=== PATIENT | male | born 1940 | race Caucasian/White ===

== ENCOUNTER → 2016-07-04 | Outpatient (CLI) | payer MEDICARE, BC ==
--- NOTE | 2016-07-04 08:45 | CT ---
EXAMINATION TYPE: CT cervical spine wo con DATE OF EXAM: 07/04/2016 8:21 AM COMPARISON: NONE HISTORY: Pain, history of previous surgery Automated exposure control for dose reduction was used. TECHNIQUE: CT scan of the cervical spine is obtained without contrast, axial images are obtained, sa gittal and coronal reformatted images are also reviewed. FINDINGS: Previous changes of ACDF from C5 through C7 levels and posterior fusion from C3 through C7 levels. Laminectomies from C3 through C7. There is stable alignment of the orthopedic hardware withou t any hardware complication seen. Grade 1 anterolisthesis the level of fusion at C7-T1 is unchanged with anterior bridging endplate sp ondylosis and facet arthropathy. Disc/endplate degenerative change at C3-C5 levels and also C7-T1 overall unchanged. C2-C3: there is left-sided facet and uncovertebral joint arthropathy causing mild left-sided neurofo raminal stenosis. C3-C4: bilateral facet and uncovertebral joint arthropathy causing moderate to severe left and mild right neuroforaminal stenosis. Dorsal decompression of the spinal canal. C4-C5: bilateral facet and uncovertebral joint arthropathy with moderate to severe right and moderate left neuroforaminal stenoses dorsal decompression of the spinal canal. C5-C6: posterior disc osteophyte complex with uncovertebral joint and facet arthropathy resulting in moderate left greater than right neuroforaminal stenoses. C6-C7: left paracentral disc osteophyte complex with uncovertebral joint and facet arthropathy. Alvarez ges result in mild to moderate left and mild right neuroforaminal stenoses. C7-T1: grade 1 anterolisthesis. The right C7 screw extends partially into the superior right neurofor amen. Facet arthropathy. No significant spinal canal stenosis. IMPRESSION: 1. Stable postsurgical changes. Stable alignment and hardware. 2. Moderate multilevel disc endplate complex degenerative change as well as hypertrophic changes of t he cervical apophyseal joints. 3. Varying degrees of foraminal stenosis.
--- NOTE | 2016-07-04 08:52 | CT ---
EXAMINATION TYPE: CT thoracic spine wo con DATE OF EXAM: 07/04/2016 8:21 AM COMPARISON: NONE HISTORY: Pain Unenhanced CT of the thoracic spine was performed from C7-T1 through T12-L1. Axial coronal and sagitt al images are reviewed in the bone and soft tissue window settings. Automated exposure control for dose reduction was used. FINDINGS: There is moderate multilevel degenerative disc space narrowing. Posterior disc bulging with encapsula ting spur at T10-11 paracentrally and to the left resulting in effacement of the thecal sac and borde rline to mild stenosis. Disc bulging with mild encapsulating spur at T11-12 with only mild effacement of the ventral thecal sac. Moderately large disc endplate complex at L1-2 resulting in left lateral recess stenosis, left foraminal encroachment and central stenosis. Remaining thoracic levels are felt to be within normal limits. Moderate anterior hypertrophic spur formation noted. No evidence for com pression fracture or malalignment. No bony destructive process. No paraspinal mass detected. Atheroma tous and ectatic change of the thoracic aorta. IMPRESSION: 1. MULTILEVEL DEGENERATIVE DISC DISEASE. 2. DISC ENDPLATE COMPLEX AT T10-11 AND T11-12 DISCUSSED ABOVE.
== END | disposition home or self-care (01) ==
LOC: RADCTMAIN 07:57
PROVIDERS: ATTEND Neurological Surgery
DX: M99.71 Connective tissue and disc stenosis of intervertebral foramina of cervical region (principal); M47.812 Spondylosis without myelopathy or radiculopathy, cervical region; M51.34 Other intervertebral disc degeneration, thoracic region; Z98.890 Other specified postprocedural states
CPT/HCPCS: 72125; 72128

== ENCOUNTER → 2016-09-21 | Outpatient (CLI) | payer MEDICARE, BC ==
--- NOTE | 2016-09-21 12:24 | CT ---
EXAMINATION TYPE: CT cervical spine wo con DATE OF EXAM: 09/21/2016 COMPARISON: NONE HISTORY: Cervical disc degeneration CT DLP: 438.5 mGycm Automated exposure control for dose reduction was used. TECHNIQUE: CT scan of the cervical spine is obtained without contrast, axial images are obtained, sa gittal and coronal reformatted images are also reviewed. FINDINGS: C3-4: There is severe left foraminal stenosis. Uncovertebral joint hypertrophy is present. There is s evere facet hypertrophy. Laminectomy has been performed. Left paracentral endplate spurring is presen t from C3. No spinal canal stenosis is present. C4-5: Facet hypertrophy and uncovertebral joint hypertrophy is contributing to severe bilateral toni inal stenosis. Laminectomy has been performed. No spinal canal stenosis present. C5-6: There is anterior cervical fusion. Mild bilateral foraminal narrowing is present C6-7: Endplate changes are present. Moderate left foraminal narrowing is present from uncovertebral j oint hypertrophy. Laminectomy has been performed. C7-T1: No spinal canal stenosis is evident. Neural foramen may have mild narrowing. Limited CT sections are obtained through the upper lung apices which are unremarkable. IMPRESSION: 1. Postsurgical changes with laminectomy anterior and posterior cervical fusions. 2. Multilevel degenerative disc changes within the nonfused disc levels. 3. Multiple levels of severe foraminal stenosis due to facet hypertrophy with some contribution from uncovertebral joint hypertrophy. 4. Exam appears stable from 07/04/2016.
== END | disposition home or self-care (01) ==
LOC: RADCTMAIN 06:51
PROVIDERS: ATTEND Neurological Surgery
DX: M99.71 Connective tissue and disc stenosis of intervertebral foramina of cervical region (principal); M47.812 Spondylosis without myelopathy or radiculopathy, cervical region; Z98.890 Other specified postprocedural states; Z98.1 Arthrodesis status
CPT/HCPCS: 72125

== ENCOUNTER → 2017-02-20 | Outpatient (CLI) | payer MEDICARE, BC ==
--- NOTE | 2017-02-20 16:10 | XR ---
EXAMINATION TYPE: XR thoracic spine 2V DATE OF EXAM: 02/20/2017 CLINICAL HISTORY: pain TECHNIQUE: Frontal, lateral, and swimmer's view of thoracic spine are obtained. Cervicothoracic imag ing. COMPARISON: None. FINDINGS: Interconnecting pedicular screws extend from C3 through T5. Alignment appears to be near-an atomic. Lower cervical fixation plate and anterior screws noted. ACDF changes C5-C7. Intervertebral b kai spacers appear to be stable. No evidence for acute compression fracture. IMPRESSION: Appropriate postoperative alignment.
== END | disposition home or self-care (01) ==
LOC: RADXRMAIN 13:57
PROVIDERS: ATTEND Neurological Surgery
DX: M48.061 Spinal stenosis, lumbar region without neurogenic claudication (principal); M50.30 Other cervical disc degeneration, unspecified cervical region; Z98.890 Other specified postprocedural states
CPT/HCPCS: 72070

== ENCOUNTER → 2017-04-27 | Day surgery (SDC) | payer MEDICARE, BC ==
[2017-04-19 12:23] VITALS: BMI 29.7
[~2017-04-27] MED LIST: CLINDAMYCIN 150 MG/ML 4 ML VIAL IVPB ONE; CLINDAMYCIN 900 MG in DEXTROSE 5% IN WATER 50 ML IVPB ONE; LIDOCAINE 2% INJ 20 MG/ML SQ ONE; MIDAZOLAM 2 MG/2 ML VIAL IV ONE; SODIUM CHLORIDE 0.9% 1,000 ML IV SCH
[2017-04-27 07:03] LABS: Glucose,Whole Blood 101 mg/dL (75-99)
[2017-04-27 07:09] LABS: Basophils # (A) 0.1 k/uL (0-0.2); Basophils % (A) 1 %; Eosinophils # (A) 0.1 k/uL (0-0.7); Eosinophils % (A) 2 %; HCT 48.1 % (39.0-53.0); HGB 15.7 gm/dL (13.0-17.5); Lymphocytes # (A) 1.7 k/uL (1.0-4.8); Lymphocytes % (A) 28 %; MCH 30.7 pg (25.0-35.0); MCHC 32.6 g/dL (31.0-37.0); MCV 94.2 fL (80.0-100.0); Mean Platelet Volume 7.2; Monocytes # (A) 0.4 k/uL (0-1.0); Monocytes % (A) 7 %; Neutrophils # (A) 3.6 k/uL (1.3-7.7); Neutrophils % (A) 60 %; Platelet Count 273 k/uL (150-450); RBC 5.11 m/uL (4.30-5.90); RDW 14.5 % (11.5-15.5); WBC 6.1 k/uL (3.8-10.6)
[2017-04-27 07:15] VITALS: TEMP 98.7
[2017-04-27 07:21] LABS: Anion Gap 10 mmol/L; Blood Urea Nitrogen 13 mg/dL (9-20); Calcium 9.2 mg/dL (8.4-10.2); Carbon Dioxide 27 mmol/L (22-30); Chloride 106 mmol/L (98-107); Glucose 114 mg/dL (74-99); Potassium 3.5 mmol/L (3.5-5.1); Sodium 143 mmol/L (137-145)
[2017-04-27 08:30] VITALS: BP 123/77; PULSE 62; RESP 16
--- NOTE | 2017-04-27 08:38 | P.PCN ---
Preoperative Diagnosis: Loop monitor implant Primary physicians: Dr. Hearn Diagrammer: Dr. Marin Indication: Recurrent dizziness and presyncope, palpitations Patient was brought to the EP lab in a fasting state. Written informed consent was obtained prior to the procedure. The left pectoral area was prepped and draped per protocol. Intravenous antibiotic was administered preoperatively. A subcutaneous Loop monitor was implanted successfully and the wound was closed per protocol. The device was programmed to detect significant yakov- arrhythmic and tachy-arrhythmic events, per protocol. Device and programming details: Bradycardia and A. fib detection protocol Patient underwent EP procedure under conscious sedation/moderate sedation, monitoring of the level of consciousness and physiologic parameters including but not limited to vital signs and oxygenation. Patient tolerated the procedure well without any acute complications. Start time: 7:55 AM Stop time: 8:06 AM Condition: stable Disposition: same day
--- NOTE | 2017-05-12 17:24 | P.PCN ---
Preoperative Diagnosis: Procedure: Tilt table test Indication for procedure: Syncope 2 ECG shows sinus rhythm normal cardiac intervals Tilt table test per protocol Baseline blood pressure 119/70 mmHg Baseline heart rate 62 beats a minute patient was tilted upright at an angle of 70 per protocol was no changes heart regular blood pressure and he is supine at the end of the procedure Impression Normal heart rate and blood pressure response to upright tilting Plan Proceed with implantation of a loop monitor for evaluation of syncope Condition: stable Disposition: same day
== END | disposition home or self-care (01) ==
LOC: CATHEP 06:17
PROVIDERS: ATTEND Internal Medicine Clinical Cardiac Electrophysiology
DX: R55 Syncope and collapse (principal); R00.2 Palpitations; I10 Essential (primary) hypertension; I45.89 Other specified conduction disorders; I45.10 Unspecified right bundle-branch block; E78.5 Hyperlipidemia, unspecified; E11.9 Type 2 diabetes mellitus without complications; Z79.84 Long term (current) use of oral hypoglycemic drugs; Z79.82 Long term (current) use of aspirin; Z79.899 Other long term (current) drug therapy; Z88.0 Allergy status to penicillin; Z88.8 Allergy status to other drugs, medicaments and biological substances; Z91.041 Radiographic dye allergy status
CPT/HCPCS: 33282; 93660; 80048; 85025; C1764; J2001; J2250; 93005

== ENCOUNTER → 2017-05-09 | Outpatient (CLI) | payer MEDICARE, BC ==
--- NOTE | 2017-05-09 12:18 | CT ---
EXAMINATION TYPE: CT CervThoracic spine wo con DATE OF EXAM: 05/09/2017 COMPARISON: Cervical spine CT dated 09/21/[address] dated 07/04/2016 HISTORY: Upper back pain and Left arm numbness post fusion repair in November 2016 CT DLP: 1441.4 mGycm Automated exposure control for dose reduction was used. FINDINGS: The cervical and thoracic vertebral bodies maintain normal vertebral body height and alignment. There is a slight exaggerated upper thoracic kyphosis. Surgical fixation of the cervical to upper thoracic posterior spine is seen from C3 to T4 and anteriorly from C5 through C7. No acute cervical spine or thoracic spine fracture is identified. Uncovertebral hypertrophy and facet arthropathy result in variable degrees of neural foraminal stenos is as described below. Spinal canal is patent secondary to resection of the posterior elements within the upper thoracic and entirety of the cervical spine. C2-C3: Mild to moderate on the left. No neural foraminal narrowing on the right. C3-C4: Severe on the left and mild on the right neural foraminal narrowing. C4-C5: Severe bilateral neural foraminal narrowing. C5-C6: Severe bilateral neural foraminal narrowing. C6-C7: Mild bilateral neural foraminal narrowing. C7-T1: No significant neural foraminal narrowing. No significant neural foraminal narrowing is seen within the thoracic spine at any level. Posterior disc osteophyte complex is seen at T10-T11 creating mild spinal canal stenosis. Disc desiccation is seen at T11-T12 with vacuum disc disease as well as that T12-L1. Visualized lungs are clear other than biapical pleural-parenchymal scarring. Extensive three-vessel c oronary artery calcifications are incidentally noted. Paraspinal muscles appear unremarkable. Thyroid gland is also unremarkable. IMPRESSION: 1. POSTSURGICAL CHANGES OF THE CERVICAL THORACIC SPINE WITHOUT EVIDENCE OF SPINAL CANAL STENOSIS AND LEFT CERVICAL SPINE OR UPPER THORACIC SPINE. 2. MILD SPINAL CANAL STENOSIS AT T10-11 SECONDARY TO A DISC OSTEOPHYTE COMPLEX. 3. EXTENSIVE FACET ARTHROPATHY AND UNCOVERTEBRAL HYPERTROPHY AT THE CERVICAL SPINE CREATING VARIABLE DEGREES OF NEURAL FORAMINAL STENOSIS DESCRIBED ABOVE MOST SEVERE AT C3-C6.
== END | disposition home or self-care (01) ==
LOC: RADCTMAIN 11:01
PROVIDERS: ATTEND Neurological Surgery
DX: M48.04 Spinal stenosis, thoracic region (principal); M99.71 Connective tissue and disc stenosis of intervertebral foramina of cervical region; M46.92 Unspecified inflammatory spondylopathy, cervical region; M53.82 Other specified dorsopathies, cervical region; Z98.890 Other specified postprocedural states
CPT/HCPCS: 72125; 72128

== ENCOUNTER → 2017-05-26 | Outpatient (CLI) | payer MEDICARE, BC ==
--- NOTE | 2017-05-26 14:45 | CT ---
EXAMINATION TYPE: CT cervical spine wo con DATE OF EXAM: 05/26/2017 COMPARISON: NONE HISTORY: Arthrodesis status, syncopal episodes CT DLP: 421.7 mGycm Automated exposure control for dose reduction was used. TECHNIQUE: CT scan of the cervical spine is obtained without contrast, axial images are obtained, sa gittal and coronal reformatted images are also reviewed. FINDINGS: There is diffuse loss of disc height throughout the cervical spine. Anterior cervical fusio n is present C5-6. Posterior endplate spurring is present C6-7 with mild anterior thecal sac compress ion. Foraminal stenosis is present bilaterally. Uncovertebral joint hypertrophy is severe bilateral f oraminal stenosis C5-6 severe left and moderate right foraminal stenosis C3-4 is present. Severe righ t and moderate to severe left foraminal stenosis is present C4-5. Laminectomies have been performed C3-C7. IMPRESSION: 1. Degenerative disc changes throughout the cervical spine. 2. Uncovertebral joint hypertrophy within the upper to mid cervical spine contributing to moderate to severe foraminal stenosis discussed above. 3. Postsurgical changes with anterior fusion and posterior pedicle screws and fixation rods.
== END | disposition home or self-care (01) ==
LOC: RADXRMAIN 11:07 → RADCTMAIN 11:17
PROVIDERS: ATTEND Neurological Surgery
DX: M99.71 Connective tissue and disc stenosis of intervertebral foramina of cervical region (principal); M47.812 Spondylosis without myelopathy or radiculopathy, cervical region; Z47.89 Encounter for other orthopedic aftercare; Z98.1 Arthrodesis status
CPT/HCPCS: 72125

== ENCOUNTER → 2017-06-01 | Outpatient (CLI) | payer MEDICARE, BC ==
--- NOTE | 2017-06-01 11:58 | XR ---
EXAMINATION TYPE: XR forearm LT DATE OF EXAM: 06/01/2017 COMPARISON: NONE HISTORY: Left elbow joint pain TECHNIQUE: 2 view left forearm FINDINGS: Postsurgical changes with resection of the radial head is evident. There are some small old osseous fragments adjacent to the proximal radius. No acute fractures are identified. The anterior fat pad is normal. No elevation of posterior fat pad is evident. IMPRESSION: 1. Old postsurgical changes with resection of the radial head. 2. No acute osseous abnormality.
--- NOTE | 2017-06-01 11:59 | XR ---
EXAMINATION TYPE: XR elbow complete LT DATE OF EXAM: 06/01/2017 COMPARISON: NONE HISTORY: History of radial head resection, pain TECHNIQUE: Three-view left elbow FINDINGS: The radial head is been resected. There are some ossifications adjacent to the proximal rad ius. The anterior fat pad is normal. No elevation of posterior fat pad is evident. Tiny olecranon spur is present. IMPRESSION: 1. Postsurgical changes with the prior resection of the radial head. 2. Acute osseous abnormality is not evident.
== END | disposition home or self-care (01) ==
LOC: RADXRMAIN 11:26
PROVIDERS: ATTEND Neurological Surgery
DX: M25.522 Pain in left elbow (principal); Z98.890 Other specified postprocedural states

== ENCOUNTER → 2017-06-02 | Outpatient (CLI) | payer MEDICARE, BC ==
[2017-06-02 15:26] LABS: Blood Urea Nitrogen 14 mg/dL (9-20)
== END | disposition home or self-care (01) ==
LOC: LABWHC1 14:49
PROVIDERS: ATTEND Neurological Surgery
DX: M48.02 Spinal stenosis, cervical region (principal)
CPT/HCPCS: 36415; 82565; 84520

== ENCOUNTER → 2017-08-28 | Outpatient (CLI) | payer MEDICARE, BC ==
[2017-08-28 11:36] LABS: HCT 51.4 % (39.0-53.0); HGB 16.7 gm/dL (13.0-17.5); MCH 31.3 pg (25.0-35.0); MCHC 32.5 g/dL (31.0-37.0); MCV 96.3 fL (80.0-100.0); Mean Platelet Volume 6.8; Platelet Count 257 k/uL (150-450); RBC 5.34 m/uL (4.30-5.90); RDW 13.3 % (11.5-15.5)
[2017-08-28 11:42] LABS: Anion Gap 14 mmol/L; Blood Urea Nitrogen 11 mg/dL (9-20); Calcium 9.5 mg/dL (8.4-10.2); Carbon Dioxide 30 mmol/L (22-30); Chloride 101 mmol/L (98-107); Glucose 142 mg/dL (74-99); Potassium 3.6 mmol/L (3.5-5.1); Sodium 145 mmol/L (137-145)
== END | disposition home or self-care (01) ==
LOC: LABWHC1 10:52
PROVIDERS: ATTEND Internal Medicine Clinical Cardiac Electrophysiology
DX: I47.1 Supraventricular tachycardia (principal); R55 Syncope and collapse
CPT/HCPCS: 36415; 80048; 85027

== ENCOUNTER 2017-09-12 06:42 | Day surgery (SDC) | payer MEDICARE, BC ==
[2017-09-01 13:46] VITALS: BMI 28.8
[~2017-09-12 06:42] MED LIST changes: -CLINDAMYCIN 150 MG/ML 4 ML VIAL IVPB ONE; -CLINDAMYCIN 900 MG in DEXTROSE 5% IN WATER 50 ML IVPB ONE; +LACTATED RINGERS 1,000 ML IV SCH; -LIDOCAINE 2% INJ 20 MG/ML SQ ONE; -MIDAZOLAM 2 MG/2 ML VIAL IV ONE
[2017-09-12] MEDS ORDERED: SODIUM CHLORIDE 0.9% 1,000 ML IV ONE (07:19)
[2017-09-12] MEDS ORDERED: LIDOCAINE 2% INJ 20 MG/ML (20 ML MDV) ONE ×2 (07:22)
[2017-09-12 07:55] LABS: Glucose,Whole Blood 103 mg/dL (75-99)
[2017-09-12] MEDS ORDERED: ROCURONIUM BROMIDE 10 MG/ML 10 ML VIAL IV ONE (08:02)
[2017-09-12] MEDS ORDERED: ISOPROTERENOL 200 MCG/ML 5 ML AMP IV ONE (08:02)
[2017-09-12] MEDS ORDERED: GLYCOPYRROLATE 0.2 MG/ML 2 ML VIAL ONE (08:02)
[2017-09-12] MEDS ORDERED: HEPARIN SODIUM,PORCINE 5,000 UNIT/ML 1 ML VIAL ONE (08:02)
[2017-09-12] MEDS ORDERED: ONDANSETRON 4 MG/2 ML VIAL ONE (08:02)
[2017-09-12] MEDS ORDERED: LIDOCAINE 1% INJ 10MG/ML (20 ML MDV) ONE (08:02)
[2017-09-12] MEDS ORDERED: SUCCINYLCHOLINE CHLORIDE 100 MG/5 ML SYR IV ONE (08:02)
[2017-09-12] MEDS ORDERED: fentaNYL (PF) 50 MCG/ML 2 ML AMP ONE (08:02)
[2017-09-12] MEDS ORDERED: MIDAZOLAM 2 MG/2 ML VIAL ONE (08:02)
[2017-09-12] MEDS ORDERED: NEOSTIGMINE 1 MG/ML 10 ML VIAL ONE (08:02)
[2017-09-12] MEDS ORDERED: PROTAMINE SULFATE 10 MG/ML 5 ML VIAL IV ONE (08:02)
[2017-09-12] MEDS ORDERED: PROPOFOL 10 MG/ML 20 ML VIAL IV ONE (08:02)
[2017-09-12] MEDS ORDERED: LIDOCAINE 2% INJ 20 MG/ML SQ ONE (08:34)
[2017-09-12] MEDS ORDERED: HEPARIN SODIUM 1,000 UN/ML (10ML VL) ONE (09:41)
[2017-09-12] MEDS ORDERED: HEPARIN SODIUM,PORCINE/D5W PMX 25,000 UNIT in DEXTROSE/WATER 1 500ML.BAG IV ONE (09:55)
[2017-09-12] MEDS ORDERED: HEPARIN SODIUM (1,000 UNIT/ML) 1,000 UNIT in SODIUM CHLORIDE 0.9% 1,000 ML IRRIGATION ONE (10:24)
[2017-09-12] MEDS ORDERED: ACETAMINOPHEN IV (For NPO) 1,000 MG in EMPTY BAG 1 BAG IVPB ONE (11:07)
[2017-09-12] MEDS ORDERED: HYDROcodone/APAP 5-325MG 1 EACH TAB PO PRN (11:07)
[2017-09-12] MEDS ORDERED: ACETAMINOPHEN TAB 325 MG TAB PO PRN (11:07)
[2017-09-12 11:40] LABS: Glucose,Whole Blood 107 mg/dL (75-99)
[2017-09-12] MEDS: APIXABAN 5 MG TAB PO SCH ×2 (13:15→20:45)
[2017-09-12 16:32] LABS: Glucose,Whole Blood 81 mg/dL (75-99)
[2017-09-12] MEDS: metFORMIN 500 MG TAB PO SCH (16:55)
[2017-09-12] MEDS ORDERED: METOPROLOL SUCCINATE (ER) 25 MG TAB.ER.24H PO SCH (17:00)
--- NOTE | 2017-09-12 19:03 | CE ---
CARDIAC ELECTROPHYSIOLOGY REPORT Mr. Woods is an 77-year-old male patient who has a history of AV ari reentry. He has a loop monitor implanted because he has had episodes of syncope, but no arrhythmias have been documented during these spells. It is unclear as to why this man falls to the ground. 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 He is brought in for diagnostic EP study for an evaluation of the arrhythmia and possible radiofrequency ablation and to recommend further changes in management. Patient was brought to the EP lab in a fasting state. Written informed consent was obtained prior to the procedure. Both groins were prepped and draped as per protocol. Three venous sheaths were placed in the right femoral vein. Via these, diagnostic catheters were placed in the right heart initially in the high right atrium, His bundle and AV node and right ventricle. Later, the catheter was placed in the coronary sinus. Sinus cycle length 976 milliseconds, IA interval 230 milliseconds, QRS 157 milliseconds, QT 440 milliseconds, AH interval 103 milliseconds, normal HV interval. AV node Wenckebach block in the baseline state 500 milliseconds. No VA conduction noted in the baseline state. Sinus node recovery times at 600, 500 and 400 milliseconds were 1316, 1335 and 1134 milliseconds. Corresponding corrected sinus node recovery times were at the upper limits of normal. AV node ERP 600/350 milliseconds. Isuprel was started. AV node Wenckebach block improved to 250 milliseconds. VA Wenckebach block improved to 340 milliseconds. AV node ERP 500/less than 200 milliseconds. Ventricular ERP 500/less than 200 milliseconds. AV node Wenckebach block from the coronary sinus was 290 milliseconds. Burst stimulation from the coronary sinus was performed. No SVT was induced. High-dose Isuprel was continued. Tachycardia spontaneously induced. This was an organized atrial fibrillation that later organized to an atrial flutter. Entrainment mapping was performed from the coronary sinus os and from the isthmus and the post pacing interval was almost equal to the tachycardia cycle length. The morphology on the surface ECG also corresponded to a typical atrial flutter. Therefore, an intracardiac echo catheter was placed. A long sheath was placed. RF ablation land surveyor tip was placed. 3D mapping was performed. The patient had a subeustachian pouch, actually 2 subeustachian pouches, 2 adjacent pouches in the subeustachian area. Electrocardioversion was first performed and the rest of the procedure was performed under general anesthesia. RF ablation was applied in the cava tricuspid isthmus. A complete line of block was made. The line was anatomically complete. Thereafter with differential pacing, bidirectional block was proven. IV heparin was used during the procedure. This was reversed at the end of the procedure and the sheaths were removed. Please note that the patient had both disorganized atrial fibrillation, organized atrial fibrillation as well as atrial flutter. IMPRESSION: A 77-year-old male patient with a history of diabetes who has documented supraventricular tachycardia, symptomatic, and has inducible atrial flutter as well as inducible atrial fibrillation, both paroxysmal. He has typical atrial flutter and he underwent successful ablation for typical atrial flutter. PLAN: Start Eliquis 5 mg twice daily. Continue all other medications. It is possible that he may have had TIAs during these drop attacks and if so, then anticoagulation would take care of the problem. However, he also has severe neck disease and vertebral basilar insufficiency could be the cause of his loss of consciousness. However, we have not documented any bradyarrhythmias of AV block or even SVT as a cause of his loss of consciousness. He does have atrial flutter and atrial fibrillation, which is symptomatic, but is not associated with loss of consciousness. Since his AV node is abnormal in the baseline state, I would not treat him with any anti further antiarrhythmic drugs. He is already on low-dose beta blockers and he is breaking through with these episodes. I would recommend a cryoablation for symptomatic paroxysmal atrial fibrillation and I will schedule this for him. MMODL / IJN: [id number] /
--- NOTE | 2017-09-12 19:09 | LTR ---
Dear Leeroy: I had the pleasure seeing Mr. Herminio Woods on 09/12/2017 in electrophysiology followup. 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 He has had episodes of altered consciousness. Mr. Woods has undergone successful ablation for AV ari reentry. He also underwent a loop monitor implant as well as a tilt-table test for episodes of loss of consciousness. During episodes of loss of consciousness, he has neither any tachy nor bradyarrhythmias. However, we have documented episodes of tachyarrhythmia, supraventricular tachycardia, which is symptomatic, and he complains of being fatigued, as if he has run a mile. Therefore, I brought him in for a diagnostic EP study and I was able to induce: 1. Atrial fibrillation. 2. Typical atrial flutter. He does have a mildly abnormal AV node and he is already on beta blockers and therefore, I would not recommend any antiarrhythmic drug therapy for the atrial fibrillation. I did perform a successful atrial flutter ablation and I will schedule him for ablation for paroxysmal atrial fibrillation (pulmonary vein isolation). Most importantly, this gentleman needs anticoagulation and I have started him on Eliquis 5 mg twice daily. 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 His tilt-table test previously did not show evidence for neurocardiogenic syncope. I will keep you updated on his progress. Thank you for entrusting me with the care of your patient. Warm regards. Sincerely, CARLEY / MIGUEL ÁNGEL: [id number] /
[2017-09-12] MEDS ORDERED: ATORVASTATIN 20 MG TAB PO SCH (21:00)
[2017-09-12 21:01] LABS: Glucose,Whole Blood 130 mg/dL (75-99)
[2017-09-12 23:40] VITALS: RESP 16
[2017-09-13 06:19] LABS: Glucose,Whole Blood 101 mg/dL (75-99)
[2017-09-13] MEDS: metFORMIN 500 MG TAB PO SCH (06:19)
[2017-09-13 08:02] VITALS: BP 129/72; PULSE 75; TEMP 98
--- NOTE | 2017-09-13 08:10 | P.DS ---
Providers Attending physician: Randell Geiger Primary care physician: Leeroy Hearn [facility] Course: Impression Paroxysmal atrial flutter, typical, RVR, symptomatic. This reminded him of his clinical episodes of being tired and weak Paroxysmal atrial fibrillation with RVR, symptomatic Recurrent syncope without arrhythmias documented on loop monitor Recurrent supraventricular tachycardia with associated weakness but no loss of consciousness documented on loop monitor History of AV ari reentry status post successful ablation in the past Mildly abnormal AV node function at baseline with improved on Isuprel Status post successful atrial flutter ablation with bidirectional block with differential pacing We will schedule A. fib ablation, PVI Patient has a large left atrial appendage, normal size left atrium and a thick intra-atrial septum, aneurysmal Avoid antiarrhythmic drug therapy given the AV node/ fast pathway conduction abnormality Long-term anticoagulation indicated since patient is diabetic and is 77 years of age, KENNETH VASC score 3 Plan - Discharge Summary New Discharge Prescriptions: New Apixaban [Eliquis] 5 mg PO BID #180 tab Continue Atorvastatin [Lipitor] 20 mg PO HS metFORMIN HCL [Glucophage Xr] 500 mg PO HS Metoprolol Succinate [Toprol XL] 25 mg PO 1700 Discharge Medication List Atorvastatin [Lipitor] 20 mg PO HS 08/18/14 [History] metFORMIN HCL [Glucophage Xr] 500 mg PO HS 08/18/14 [History] Metoprolol Succinate [Toprol XL] 25 mg PO 1700 09/01/17 [History] Apixaban [Eliquis] 5 mg PO BID #180 tab 09/12/17 [Rx] Follow up Appointment(s)/Referral(s): Randell Geiger MD [STAFF PHYSICIAN] - As Needed (Follow-up appointment as scheduled with Dr. Marin in 4-6 weeks) Activity/Diet/Wound Care/Special Instructions: Post EP study - Ablation instructions 1. Keep access sites dry for 2 days. 2. No heavy lifting or straining for 2 days. 3. Avoid bending the hips repeatedly for 2 days. 4. You may go up and down stairs slowly Call if the following is noted 1. Bleeding, increasing swelling or pain at the access sites. 2. Increasing chest discomfort, especially upon taking a deep breath. 3. Increasing shortness of breath, at rest or with exertion. 4. Undue cough / phlegm 5. Difficulty or pain while swallowing. 6. Pain or change in color in the extremities. 7. Fever, chills, rigors. 8. Increasing headache or neurologic symptoms. 9. Dizziness, fainting, palpitations New medication ELIQUIS 5 mg twice daily for stroke prevention Continue all other medications Please call piano case maker to arrange for first month supply of ELIQUIS Discharge Disposition: HOME SELF-CARE
[2017-09-13] MEDS: APIXABAN 5 MG TAB PO SCH (08:12)
--- NOTE | 2017-09-13 08:19 | DS ---
DISCHARGE SUMMARY Mr. Woods is a 77-year-old male patient who was admitted for evaluation for SVT with RVR. Paroxysmal atrial fibrillation was induced, paroxysmal typical atrial flutter was induced. He underwent atrial flutter ablation. This morning, he is doing well. He has minimal soreness in the groin. There is no hematoma. Heart sounds are normal. Breath sounds are clear. Vitals are stable. Blood pressure is normal. Heart rates are normal. He is ambulating in the hallways. A 12- lead ECG shows a mildly prolonged MI interval, which is at similar to baseline. No arrhythmias. PLAN: Discharge home on oral anticoagulants, Eliquis 5 mg twice daily. Continue diabetes medications, low-dose beta blockers and atorvastatin and consider A. fib ablation. I have scheduled him for the procedure. I would avoid antiarrhythmic drug therapy on him because he has pacing induced AV block and a mildly prolonged MI interval at baseline. He will be discharged home today and we will see him in the office and he will follow with Dr. Hearn. CARLEY / MIGUEL ÁNGEL: [id number] /
--- NOTE | 2017-09-13 08:22 | P.CONS ---
History of Present Illness - Reason for Consult Consult date: 09/13/17 - Chief Complaint Arrhythmia - History of Present Illness The patient is seen for medical consultation related to arrhythmia of atrial flutter/atrial fibrillation. The patient is status post EPS study. He has an underlying history of well-controlled hypertension. Otherwise home with syncope. I had a long discussion with river pilot who feels that this could be most posterior circulatory. Otherwise no voiding difficulties. No overt chest pain or shortness of breath is noted. Review of Systems Constitutional: Denies chills, Denies fever Eyes: denies blurred vision, denies pain Ears, nose, mouth and throat: Denies headache, Denies sore throat Cardiovascular: Denies chest pain, Denies shortness of breath Respiratory: Denies cough Gastrointestinal: Denies abdominal pain, Denies diarrhea, Denies nausea, Denies vomiting Past Medical History Past Medical History: Diabetes Mellitus, GERD/Reflux, Hyperlipidemia, Hypertension, Osteoarthritis (OA), Sleep Apnea/CPAP/BIPAP Additional Past Medical History / Comment(s): occular migraines,uses cpap machine- had precancerous polyps removed from colon. See Dr Geiger's H&P for cardiac hx metal C3-T4 , vertigo History of Any Multi-Drug Resistant Organisms: None Reported Past Surgical History: Cardiac Ablation, Orthopedic Surgery Additional Past Surgical History / Comment(s): bilcervical , C3 to T4 on 2016has plate and chronic pain limited movement, sawyer carpal tunnel , sawyer cataracts-occular implnats, and lt eye retinal repair, rt rotaot cuff rt has screws in place, epidural injection in lumbar area x2 at [place] Past Anesthesia/Blood Transfusion Reactions: Previous Problems w/ Anesthesia, Motion Sickness Additional Past Anesthesia/Blood Transfusion Reaction / Comm: vertigo due to anethesia Smoking Status: Never smoker - Past Family History Father Additional Family Medical History / Comment(s): killed in mine accident. in his family colon cancer was prevalent Mother Family Medical History: Dementia, Diabetes Mellitus Additional Family Medical History / Comment(s): lived till age 93 Medications and Allergies Home Medications Medication Instructions Recorded Confirmed Type Atorvastatin [Lipitor] 20 mg PO HS 08/18/14 09/12/17 History metFORMIN HCL [Glucophage Xr] 500 mg PO HS 08/18/14 09/12/17 History Metoprolol Succinate [Toprol XL] 25 mg PO 1700 09/01/17 09/12/17 History Apixaban [Eliquis] 5 mg PO BID #180 tab 09/12/17 Rx Allergies Allergy/AdvReac Type Severity Reaction Status Date / Time Iodinated Contrast- Oral and Allergy Anaphylaxis Verified 09/01/17 13:36 IV Dye [Iodinated Contrast Media - IV Dye] Penicillins Allergy Rash/Hives Verified 09/01/17 13:36 Physical Exam Vitals: Vital Signs Temp Pulse Resp BP Pulse Ox 09/13/17 08:00 98 F 75 16 129/72 96 09/13/17 05:00 118/70 09/13/17 04:00 98.1 F 68 16 129/78 96 09/12/17 23:38 98.0 F 70 16 119/73 95 09/12/17 23:35 18 09/12/17 22:52 122/75 09/12/17 20:00 97.9 F 75 18 119/73 97 09/12/17 16:33 97.5 F L 78 16 125/81 96 09/12/17 16:30 76 16 09/12/17 14:52 68 16 126/64 95 09/12/17 13:52 97.0 F L 84 16 134/86 97 09/12/17 12:53 97.0 F L 86 16 136/81 96 09/12/17 12:52 84 16 136/84 98 09/12/17 12:43 83 14 09/12/17 12:28 85 16 131/88 97 09/12/17 12:13 96.8 F L 86 16 136/81 96 09/12/17 11:53 83 14 136/88 97 09/12/17 11:38 82 14 136/88 100 09/12/17 11:23 97.7 F 88 16 138/87 99 Intake and Output 09/12/17 09/13/17 09/13/17 22:59 06:59 14:59 Intake Total 240 125 240 Output Total 400 Balance -160 125 240 Intake: Oral 240 125 240 Output: Urine 400 Other: Voiding Method Toilet # Voids 2 2 1 # Bowel Movements 0 Weight 80.9 kg - Constitutional General appearance: no acute distress - EENT Eyes: EOMI - Neck Neck: no lymphadenopathy - Cardiovascular Rhythm: regular Abnormal Heart Sounds: no S3 Gallop - Gastrointestinal General gastrointestinal: soft, no tenderness - Integumentary Integumentary: no cellulitis - Neurologic Neurologic: CNII-XII intact Results Labs: Abnormal Lab Results - Last 24 Hours (Table) 09/12/17 09/12/17 09/13/17 Range/Units 11:38 20:58 06:17 POC Glucose (mg/dL) 107 H 130 H 101 H (75-99) mg/dL Assessment and Plan (1) DM w/o complication type II Current Visit: No Status: Acute Code(s): E11.9 - TYPE 2 DIABETES MELLITUS WITHOUT COMPLICATIONS SNOMED Code(s): 167146300 (2) SVT (supraventricular tachycardia) Current Visit: No Status: Acute Code(s): I47.1 - SUPRAVENTRICULAR TACHYCARDIA SNOMED Code(s): 2457472 (3) Syncope and collapse Current Visit: No Status: Acute Code(s): R55 - SYNCOPE AND COLLAPSE SNOMED Code(s): 880931838 Plan: Reconcile medications. We'll continue to follow her medical perspective. I had a long discussion with the patient educating probable prognosis. I discussed CODE STATUS with the patient is full code at this time. See orders otherwise. I appreciate consultation. Time with Patient: Less than 30
[2017-09-13] MEDS ORDERED: TRIAMCINOLONE 0.1% CREAM 80 GM TUBE TOPICAL SCH (09:00)
== END 2017-09-13 09:25 | disposition home or self-care (01) ==
LOC: CATHEP 06:42 → 6SEL 10:50 → CATHEP 09-13 09:25
PROVIDERS: ATTEND Internal Medicine Clinical Cardiac Electrophysiology
DX: I47.1 Supraventricular tachycardia (principal); I48.0 Paroxysmal atrial fibrillation; I48.3 Typical atrial flutter; R55 Syncope and collapse; E78.5 Hyperlipidemia, unspecified; E11.9 Type 2 diabetes mellitus without complications; I10 Essential (primary) hypertension; I45.10 Unspecified right bundle-branch block; K21.9 Gastro-esophageal reflux disease without esophagitis; M19.90 Unspecified osteoarthritis, unspecified site; G47.33 Obstructive sleep apnea (adult) (pediatric); G89.29 Other chronic pain; G43.809 Other migraine, not intractable, without status migrainosus; Z99.89 Dependence on other enabling machines and devices; Z98.1 Arthrodesis status; Z79.84 Long term (current) use of oral hypoglycemic drugs; Z79.899 Other long term (current) drug therapy; Z88.0 Allergy status to penicillin; Z88.8 Allergy status to other drugs, medicaments and biological substances; Z91.09 Other allergy status, other than to drugs and biological substances
CPT/HCPCS: 93623; 93662; 93613; 93653; C1894; C1769 ×2; C1893; C1730 ×2; C1759; C1732; J2001; J1644 ×2; J0131

== ENCOUNTER → 2017-09-25 | Outpatient (CLI) | payer MEDICARE, BC ==
--- NOTE | 2017-09-25 09:44 | US ---
EXAMINATION TYPE: US lower ext pseudo artery RT DATE OF EXAM: 09/25/2017 COMPARISON: NONE CLINICAL HISTORY: Heart cath done in right groin about 2 weeks ago. Right groin pain EXAM PERFORMED: Grayscale and color Doppler duplex imaging performed of the groin, post cardiac michelet ter to assess for pseudoaneurysm. SIDE PERFORMED: Right Color and Waveform Doppler performed to assess for the presence of pseudoaneurysm; Is there ultrasound evidence of a pseudoaneurysm: No Is there evidence of AV shunting: No Is there a fluid collection present: No IMPRESSION: No diagnostic evidence of pseudoaneurysm
== END | disposition home or self-care (01) ==
LOC: RADUSMAIN 07:40
PROVIDERS: ATTEND Internal Medicine Clinical Cardiac Electrophysiology
DX: I72.8 Aneurysm of other specified arteries (principal)
CPT/HCPCS: 93975

== ENCOUNTER → 2017-11-28 | Outpatient (CLI) | payer MEDICARE, BC ==
[2017-11-28 09:49] LABS: HCT 53.2 % (39.0-53.0); HGB 16.6 gm/dL (13.0-17.5); MCH 30.8 pg (25.0-35.0); MCHC 31.1 g/dL (31.0-37.0); MCV 98.9 fL (80.0-100.0); Mean Platelet Volume 6.6; Platelet Count 256 k/uL (150-450); RBC 5.38 m/uL (4.30-5.90); RDW 13.5 % (11.5-15.5); WBC 6.7 k/uL (3.8-10.6)
[2017-11-28 09:54] LABS: Anion Gap 7 mmol/L; Blood Urea Nitrogen 13 mg/dL (9-20); Carbon Dioxide 31 mmol/L (22-30); Chloride 104 mmol/L (98-107); Glucose 91 mg/dL (74-99); Potassium 4.5 mmol/L (3.5-5.1); Sodium 142 mmol/L (137-145)
== END | disposition home or self-care (01) ==
LOC: LABPAT 08:43
PROVIDERS: ATTEND Internal Medicine Clinical Cardiac Electrophysiology
DX: Z01.812 Encounter for preprocedural laboratory examination (principal); I48.2 Chronic atrial fibrillation; I47.1 Supraventricular tachycardia
CPT/HCPCS: 36415; 80051; 82565; 82947; 84520; 85027

== ENCOUNTER 2017-12-04 05:55 | Day surgery (SDC) | payer MEDICARE, BC ==
[2017-11-29 13:34] VITALS: BMI 27.2
[2017-12-04] MEDS ORDERED: fentaNYL (PF) 50 MCG/ML 2 ML AMP IV PRN (05:58)
[2017-12-04] MEDS ORDERED: MIDAZOLAM 2 MG/2 ML VIAL IV PRN (05:58)
[2017-12-04] MEDS: SODIUM CHLORIDE 0.9% 1,000 ML IV SCH (06:22)
[2017-12-04 06:39] LABS: Glucose,Whole Blood 134 mg/dL (75-99)
[2017-12-04] MEDS ORDERED: HEPARIN SODIUM,PORCINE 30 ML 30 ML ONE (07:13)
[2017-12-04] MEDS ORDERED: LIDOCAINE 1% INJ 10MG/ML (20 ML MDV) ONE ×2 (07:29→07:35)
[2017-12-04] MEDS ORDERED: SUCCINYLCHOLINE CHLORIDE 100 MG/5 ML SYR IV ONE (07:35)
[2017-12-04] MEDS ORDERED: fentaNYL (PF) 50 MCG/ML 2 ML AMP ONE (07:35)
[2017-12-04] MEDS ORDERED: HEPARIN SODIUM,PORCINE 5,000 UNIT/ML 1 ML VIAL ONE (07:35)
[2017-12-04] MEDS ORDERED: MIDAZOLAM 2 MG/2 ML VIAL ONE (07:35)
[2017-12-04] MEDS ORDERED: PROPOFOL 10 MG/ML 20 ML VIAL IV ONE (07:35)
[2017-12-04] MEDS ORDERED: PHENYLEPHRINE-0.9% NACL SYG 1 MG/10 ML SYRINGE ONE (07:35)
[2017-12-04] MEDS ORDERED: ePHEDrine SULFATE/0.9% NACL/PF 50 MG/5 ML SYRINGE IV ONE (07:35)
[2017-12-04] MEDS ORDERED: PROTAMINE SULFATE 10 MG/ML 5 ML VIAL IV ONE (07:35)
[2017-12-04] MEDS ORDERED: ISOPROTERENOL 250 MCG/1.25 ML SYR IV ONE (07:35)
[2017-12-04] MEDS ORDERED: LIDOCAINE 1% INJ 10MG/ML (20 ML MDV) SQ ONE (08:18)
[2017-12-04] MEDS ORDERED: HEPARIN SOD,PORK IN 0.45% NACL 25,000 UNIT in 0.45% NACL 1 500ML.BAG IV ONE (08:43)
[2017-12-04 12:22] LABS: Glucose,Whole Blood 146 mg/dL (75-99)
--- NOTE | 2017-12-04 12:33 | P.PCN ---
Preoperative Diagnosis: Diagnosis Atrial fibrillation, symptomatic, paroxysmal Underlying sick sinus syndrome /AV node disease Procedures performed (PVI - CRYO Ablation) Invasive hemodynamic monitoring while general anesthesia, right femoral arterial line for monitoring and sampling Comprehensive diagnostic EP study with attempted arrhythmia induction CS pacing and recording Drug infusion Catheter the mapping of the tachycardia (NOT 3D mapping) Intracardiac echocardiography Pulmonary vein isolation with transseptal and comprehensive EPS, [id number] Procedure details Patient was brought to the EP lab in a fasting state. Written informed consent was obtained prior to the procedure. Procedure performed under general anesthesia After initial muscle relaxant use, muscle relaxants were not given thereafter in order to assess phrenic nerve during procedure Patient prepped and draped as per protocol Full cryo-set up with standard preparation of the cryoablation tools done Femoral Venous access obtained on the right and left groins Sheaths placed Diagnostic catheters for the high right atrium, phrenic nerve stimulation and pacing, His bundle, RV and coronary sinus placed Intracardiac echo catheter placed Long sheath placed in the right atrium Left and right transseptal catheterization performed under intracardiac echo guidance Intravenous heparin with aCT above 300 Later, catheter positioning and balloon positioning under intracardiac echo Baseline measurements Sinus cycle length 601 ms, NV 146, QRS 153, QT 410 AH 103, HV 44 Sinus recovery times at 605 100 ms were 928 and 970 ms. Corrected sinus node recovery times at normal limits VA Wenckebach block greater than 600 AV node Wenckebach. 440 ms On Isuprel it improved only to 370 ms when pacing from the coronary sinus Comprehensive diagnostic EP study with drug infusion Atrial pacing performed from the high right atrium and the coronary sinus RV pacing Transseptal catheterization performed RA pressure 20/80 mmHg LA pressure 16/10 mmHg Transseptal catheterization performed with standard sheath. The cryoablation sheath was then placed with an over the wire exchange without any acute complications. All 4 pulmonary veins were isolated in the following sequence: Left superior followed by left inferior followed by right superior followed by right inferior The cryo-ablation balloon was placed at the os of each vein 1.5 mL of IV dye was injected to confirm an occluded vein Goal during cryoablation was to achieve complete occlusion of the pulmonary vein , achieve -30C at 30 seconds and achieve -40C at 60 seconds and a time to affect of less than 60-90 seconds, . If not the balloon was repositioned to obtain this result After completion of Cryoblation with durations from 180-240 seconds, entrance block was confirmed with the Attain circular catheter in a roving fashion around the antrum of the pulmonary veins Phrenic nerve pacing was performed from the SVC, right innominate vein area and diaphragm voltage was monitored. Diaphragmatic contractions were also monitored manually for strength of contraction. Parameter goals for each cryo freeze -30C by 30 seconds -40C by 60 seconds Mediated between minus 40-55 Thaw time greater than 10 seconds Balloon visualized by intracardiac echo to ensure that the proximal one third was within the left atrium/antrum The esophagus was intubated. Esophageal Temperature monitoring with a CIRCA catheter formed. Esophageal deflection for hypothermia of the esophagus below 32C Left superior pulmonary vein Common Left-sided veins Left superior vein cannulated and achieve catheter placed. First cryoablation 120 seconds. Prematurely terminated on account of esophageal temperature drop to 27.5. Minimum temperature 23.6C Esophagus deflected 3 minute cryoablation. No further change in temperature Complete isolation of the common os as well as left superior and inferior veins Left inferior pulmonary vein Common left-sided veins Right superior pulmonary vein, during phrenic nerve pacing 2 cryo lesions, 180 seconds followed by 120 seconds Complete isolation of the left superior Right inferior pulmonary vein, during phrenic nerve pacing 2 cryo lesions 180 seconds followed by 05/01, complete isolation At the end of the procedure the Achieve catheter was once again used to check for entrance block Phrenic nerve stimulation was performed to confirm diaphragmatic stimulation the end of the procedure Cine fluoroscopy was performed at the very end of the procedure to confirm movement of both diaphragms with inspiration and expiration At the end of the procedure the patient was extubated Heparin was reversed Venous sheaths were removed and hemostasis assured Result Successful pulmonary vein isolation of all veins using cryo-ablation Complete entrance block in all 4 veins confirmed No evidence for phrenic nerve injury Large left common pulmonary vein Left-sided esophagus that required deflection in the rightward direction Anesthesia: GETA
[2017-12-04] MEDS ORDERED: ACETAMINOPHEN TAB 325 MG TAB PO PRN (12:35)
[2017-12-04] MEDS ORDERED: ACETAMINOPHEN IV (For NPO) 1,000 MG in EMPTY BAG 1 BAG IVPB ONE (12:35)
[2017-12-04] MEDS: LACTATED RINGERS 1,000 ML IV SCH (13:28)
[2017-12-04] MEDS: HYDROcodone/APAP 5-325MG 1 EACH TAB PO PRN ×2 (16:06→21:40)
[2017-12-04 17:12] LABS: Glucose,Whole Blood 140 mg/dL (75-99)
[2017-12-04 20:50] LABS: Glucose,Whole Blood 135 mg/dL (75-99)
[2017-12-04] MEDS ORDERED: ATORVASTATIN 20 MG TAB PO SCH (21:00)
[2017-12-04] MEDS ORDERED: metFORMIN 500 MG TAB PO SCH (21:00)
[2017-12-04] MEDS ORDERED: METOPROLOL SUCCINATE (ER) 25 MG TAB.ER.24H PO SCH (21:15)
[2017-12-04] MEDS ORDERED: BENZOCAINE/MENTHOL LOZENG 1 EACH LOZENGE MUCOUS MEM PRN (21:38)
[2017-12-04] MEDS: APIXABAN 5 MG TAB PO SCH (21:40)
[2017-12-05 06:55] LABS: Glucose,Whole Blood 93 mg/dL (75-99)
[2017-12-05 07:10] LABS: Anion Gap 4 mmol/L; Blood Urea Nitrogen 15 mg/dL (9-20); Calcium 8.8 mg/dL (8.4-10.2); Carbon Dioxide 33 mmol/L (22-30); Chloride 102 mmol/L (98-107); Glucose 97 mg/dL (74-99); Potassium 3.6 mmol/L (3.5-5.1); Sodium 139 mmol/L (137-145)
[2017-12-05 08:04] VITALS: RESP 18
[2017-12-05] MEDS ORDERED: RX INFO: IV CONTRAST WAS GIVEN 1 EACH MISC MISCELLANE PRN (08:06)
[2017-12-05] MEDS ORDERED: predniSONE 50 MG TAB PO STA (08:09)
[2017-12-05] MEDS: SODIUM CHLORIDE 0.9% 1,000 ML IV SCH (08:14)
[2017-12-05] MEDS: LACTATED RINGERS 1,000 ML IV SCH (08:14)
[2017-12-05] MEDS ORDERED: FAMOTIDINE 20 MG TAB PO SCH (09:00)
[2017-12-05] MEDS ORDERED: COLCHICINE 0.6 MG EACH PO SCH (09:00)
[2017-12-05] MEDS: APIXABAN 5 MG TAB PO SCH (10:47)
[2017-12-05 12:06] LABS: Glucose,Whole Blood 130 mg/dL (75-99)
--- NOTE | 2017-12-05 13:06 | CT ---
EXAMINATION TYPE: CT chest w con DATE OF EXAM: 12/05/2017 COMPARISON: None HISTORY: possible esophageal injury post cardiac ablation CT DLP: 490 mGycm, Automated exposure control for dose reduction was used. CONTRAST: Performed injected with 100 mL of Isovue 300. TECHNIQUE: Axial images were obtained at 5 mm thick sections. Reconstructed images are reviewed on [employer] computer in the coronal plane. FINDINGS: Portion of the thyroid visualized is normal. Mediastinum appears normal. No abnormal air collections are evident. No extravasation of contrast is evident. Esophagus through its visualized course appears normal. Some mild streak atelectasis appears to be within the dependent portions of the lung bases bilaterall y. No enlarged mediastinal or hilar adenopathy is evident. The ascending aorta diameter at the level o f the main pulmonary artery is 3.9 cm. The main pulmonary artery diameter at the bifurcation is 2.[address] sections are obtained through the upper abdomen. Abdomen is essentially unremarkable. Ken ngioma within the anterior left lobe liver is not excluded. IMPRESSIONS: 1. No suspicious acute changes post cardiac ablation
[2017-12-05 15:52] VITALS: BP 122/77; PULSE 92; TEMP 98.4
[2017-12-05] MEDS ORDERED: METOPROLOL SUCCINATE (ER) 25 MG TAB.ER.24H PO SCH (17:00)
--- NOTE | 2017-12-05 18:26 | P.DS ---
Providers Attending physician: Randell Geiger Primary care physician: [facility] Course: This morning I saw the patient he was complaining of throat discomfort and chest discomfort and felt uncomfortable with chest. No shortness of breath He also had some oozing and bleeding in the right groin the night before but now the groin is healed well is no hematoma. An incentive spirometer was also I ordered colchicine and Pepcid and continue all his current medications. CT of the chest was performed. There was no air in the mediastinum esophagus was within normal limits He is done well since. When I saw him in follow-up in the afternoon he is doing a lot better. He was sitting up in the chair. He had been ablating in the room. Groins were healing well heart sounds are normal there is no rub no gallops no murmur Breath sounds are clear no rhonchi no crackles Abdomen is soft Extremity is warm no edema Impression Symptomatic paroxysmal atrial fibrillation with weakness status post cryoablation of all 4 pulmonary veins Esophageal deflection, left-sided esophagus, [place] deflection Past history of atrial flutter status post ablation Past history of AV ari reentry status post ablation History of recurrent dizzy spells no bradycardia or pauses noted Plan Patient to go home today follow-up in the office in about 2 weeks continue anticoagulation all cardiac medications. Patient Condition at Discharge: Stable Plan - Discharge Summary Discharge Rx Participant: No New Discharge Prescriptions: No Action Atorvastatin [Lipitor] 20 mg PO HS metFORMIN HCL [Glucophage Xr] 500 mg PO HS Metoprolol Succinate [Toprol XL] 12.5 mg PO 1700 Apixaban [Eliquis] 5 mg PO BID #180 tab traMADol HCL [Ultram] 50 mg PO Q6HR PRN PRN Reason: Pain Discharge Medication List Atorvastatin [Lipitor] 20 mg PO HS 08/18/14 [History] metFORMIN HCL [Glucophage Xr] 500 mg PO HS 08/18/14 [History] Metoprolol Succinate [Toprol XL] 12.5 mg PO 1700 09/01/17 [History] Apixaban [Eliquis] 5 mg PO BID #180 tab 09/12/17 [Rx] traMADol HCL [Ultram] 50 mg PO Q6HR PRN 12/04/17 [History] Follow up Appointment(s)/Referral(s): Randell Geiger MD [STAFF PHYSICIAN] - 2 Weeks (office will call pt with appointment date and time.) Patient Instructions/Handouts: Cardiac Ablation (DC) Discharge Disposition: HOME SELF-CARE
== END 2017-12-05 17:00 | disposition home or self-care (01) ==
LOC: CATHEP 05:55 → 3OBS 10:42 → CATHEP 12-05 17:00
PROVIDERS: ATTEND Internal Medicine Clinical Cardiac Electrophysiology
DX: I48.0 Paroxysmal atrial fibrillation (principal); I48.3 Typical atrial flutter; I49.5 Sick sinus syndrome; I44.7 Left bundle-branch block, unspecified; Z79.01 Long term (current) use of anticoagulants; E78.5 Hyperlipidemia, unspecified; I45.10 Unspecified right bundle-branch block; I10 Essential (primary) hypertension; Z79.84 Long term (current) use of oral hypoglycemic drugs; Z79.899 Other long term (current) drug therapy; Z88.0 Allergy status to penicillin; Z88.8 Allergy status to other drugs, medicaments and biological substances; Z91.048 Other nonmedicinal substance allergy status
CPT/HCPCS: 93623; 93662; 93609; 93656; 80048; 71260; C1769 ×6; C1894 ×3; C1730 ×3; C1759; C1893; C1733; C1766; J2250; J2720; J1644 ×2; J2001; J3010; J0131; J2370; J0330; J2704; J7512; Q9967

== ENCOUNTER 2017-12-08 22:47 | Emergency (ER) | payer MEDICARE, BC ==
[2017-12-08 23:03] VITALS: RESP 18
--- NOTE | 2017-12-08 23:40 | ED ---
General Adult HPI - General Chief complaint: Recheck/Abnormal Lab/Rx Stated complaint: Post Op swelling Time Seen by Provider: 12/08/17 23:08 Source: patient, RN notes reviewed, old records reviewed Mode of arrival: ambulatory Limitations: no limitations - History of Present Illness Initial comments: This is a 77-year-old male the ER for evaluation patient resents today for evaluation regarding concern over right groin swelling and hematoma. Patient does have significant ecchymosis to right heart catheterization site right groin. Patient admits to increased edema there as well as some mild tenderness. No foot pain. No discoloration of extremities. Patient denies any other complaints - Related Data Home Medications Medication Instructions Recorded Confirmed Atorvastatin [Lipitor] 20 mg PO HS 08/18/14 12/04/17 metFORMIN HCL [Glucophage Xr] 500 mg PO HS 08/18/14 12/04/17 Metoprolol Succinate [Toprol XL] 12.5 mg PO 1700 09/01/17 12/04/17 traMADol HCL [Ultram] 50 mg PO Q6HR PRN 12/04/17 12/04/17 Previous Rx's Medication Instructions Recorded Apixaban [Eliquis] 5 mg PO BID #180 tab 09/12/17 Allergies Allergy/AdvReac Type Severity Reaction Status Date / Time Iodinated Contrast- Oral and Allergy Anaphylaxis Verified 12/08/17 23:03 IV Dye [Iodinated Contrast Media - IV Dye] Penicillins Allergy Rash/Hives Verified 12/08/17 23:03 Review of Systems ROS Statement: Those systems with pertinent positive or pertinent negative responses have been documented in the HPI. ROS Other: All systems not noted in ROS Statement are negative. Past Medical History Past Medical History: Atrial Fibrillation, Diabetes Mellitus, Hyperlipidemia, Hypertension, Sleep Apnea/CPAP/BIPAP Additional Past Medical History / Comment(s): occular migraines,uses cpap machine- had precancerous polyps removed from colon. History of Any Multi-Drug Resistant Organisms: None Reported Past Surgical History: Cardiac Ablation, Orthopedic Surgery Additional Past Surgical History / Comment(s): cervical C3 to T4, has plate and chronic pain, limited movement, sawyer carpal tunnel , sawyer cataracts-occular implants, and lt eye retinal repair, rt rotator cuff rt has screws in place, epidural injection in lumbar area x2 at [place] Past Anesthesia/Blood Transfusion Reactions: Previous Problems w/ Anesthesia, Motion Sickness Additional Past Anesthesia/Blood Transfusion Reaction / Comment(s): vertigo due to anethesia Past Psychological History: No Psychological Hx Reported Smoking Status: Never smoker Past Alcohol Use History: None Reported Past Drug Use History: None Reported - Past Family History Father Additional Family Medical History / Comment(s): Killed in mining accident. in his family colon cancer was prevalent Mother Family Medical History: Dementia, Diabetes Mellitus Additional Family Medical History / Comment(s): lived till age 93 General Exam Limitations: no limitations General appearance: alert, in no apparent distress Head exam: Present: atraumatic, normocephalic, normal inspection Eye exam: Present: normal appearance, PERRL, EOMI. Absent: scleral icterus, conjunctival injection, periorbital swelling ENT exam: Present: normal exam, mucous membranes moist Neck exam: Present: normal inspection. Absent: tenderness, meningismus, lymphadenopathy Respiratory exam: Present: normal lung sounds bilaterally. Absent: respiratory distress, wheezes, rales, rhonchi, stridor Cardiovascular Exam: Present: regular rate, normal rhythm, normal heart sounds. Absent: systolic murmur, diastolic murmur, rubs, gallop, clicks GI/Abdominal exam: Present: soft, normal bowel sounds. Absent: distended, tenderness, guarding, rebound, rigid Extremities exam: Present: normal inspection, full ROM, normal capillary refill. Absent: tenderness, pedal edema, joint swelling, calf tenderness Back exam: Present: normal inspection Neurological exam: Present: alert, oriented X3, CN II-XII intact Psychiatric exam: Present: normal affect, normal mood Skin exam: Present: warm, dry, intact, normal color. Absent: rash Course Vital Signs 12/08/17 12/09/17 22:58 00:51 Temperature 98.4 F 98.3 F Pulse Rate 89 77 Respiratory 18 18 Rate Blood Pressure 152/78 143/80 O2 Sat by Pulse 99 99 Oximetry - Reevaluation(s) Reevaluation #1: Spoke with cardiology on-call will see patient in office Medical Decision Making - Medical Decision Making 77 male the ER with postop swelling. Patient had heart catheterization right groin swelling and edema now, ultrasound shows hematoma no pseudoaneurysm. Patient can be discharged home to follow-up in office - Radiology Data Radiology results: report reviewed (Ultrasound groin negative for pseudoaneurysm ), image reviewed Disposition Clinical Impression: Groin hematoma Narrative: right groin hematoma Disposition: HOME SELF-CARE Condition: Good Instructions: Hematoma (ED) Is patient prescribed a controlled substance at d/c from ED?: No Referrals: Leeroy Hearn MD [Primary Care Provider] - 1-2 days
--- NOTE | 2017-12-09 00:06 | US ---
EXAMINATION TYPE: US lower ext pseudo artery RT DATE OF EXAM: 12/08/2017 COMPARISON: NONE CLINICAL HISTORY: Pain. Heart ablation 12/04/17, right groin. Swelling and pain right groin that star rom krueger EXAM PERFORMED: Grayscale and color Doppler duplex imaging performed of the groin, post cardiac michelet ter to assess for pseudoaneurysm. SIDE PERFORMED: right Color and Waveform Doppler performed to assess for the presence of pseudoaneurysm; Is there ultrasound evidence of a pseudoaneurysm: no Is there evidence of AV shunting: no Is there a fluid collection present: complex hypoechoic area right groin within area of bruising and swelling = 4.7 x 1.2 x 2.5cm IMPRESSION: Complex fluid collection without Doppler signal. This could be a contained pseudoaneurysm since it ap pears to extend towards the femoral artery. No Doppler pulsation was seen within the fluid.
[2017-12-09 00:52] VITALS: BP 143/80; PULSE 77; TEMP 98.3
== END 2017-12-09 00:52 | disposition home or self-care (01) ==
LOC: EC 22:47
DX: K91.871 Postprocedural hematoma of a digestive system organ or structure following other procedure (principal); I48.91 Unspecified atrial fibrillation; E11.9 Type 2 diabetes mellitus without complications; E78.5 Hyperlipidemia, unspecified; I10 Essential (primary) hypertension; G47.30 Sleep apnea, unspecified; Z99.89 Dependence on other enabling machines and devices; Z87.19 Personal history of other diseases of the digestive system; Z98.890 Other specified postprocedural states; Z95.818 Presence of other cardiac implants and grafts; Z79.84 Long term (current) use of oral hypoglycemic drugs; Z79.899 Other long term (current) drug therapy; Z91.041 Radiographic dye allergy status; Z88.0 Allergy status to penicillin; Y84.0 Cardiac catheterization as the cause of abnormal reaction of the patient, or of later complication, without mention of misadventure at the time of the procedure
CPT/HCPCS: 93975; 99284

== ENCOUNTER → 2017-12-21 | Outpatient (CLI) | payer MEDICARE, BC ==
--- NOTE | 2017-12-21 10:32 | CT ---
EXAMINATION TYPE: CT cervical spine wo con DATE OF EXAM: 12/21/2017 COMPARISON: 05/26/2017 HISTORY: 77-year-old male spondylosis and radiculopathy, cervical region, Neck pressure and numbness. Patient with revision and extension of cervical fusion performed in November 2016 due to hardware loos ening. TECHNIQUE: Contiguous axial scanning of the cervical spine without IV contrast. Coronal and sagittal reconstructions performed. CT DLP: 663.3 mGycm Automated exposure control for dose reduction was used. FINDINGS: No craniocervical junction abnormality, predental space widening, or prevertebral soft tissue swellin g. Degenerative changes at the C1 dens articulation. Patient is status post laminectomies from C3 through C6 or C7 levels. There is ACDF from C5 through C 7 and posterior fusion hardware extending from C3 down through T4. There is no abnormal backing up of the hardware or surrounding lucency identified. No evident hardwar e fracture is seen. Overall alignment of the cervical spine is maintained. Moderate to advanced disc/endplate degenerative change inferiorly throughout. Similar mild superior e ndplate deformity of T3. No acute fracture identified of the cervical spine. Much of the spinal canal has been dorsally decompressed but there is excessive metal artifact limitin g adequate visualization of the spinal canal. Hyperostotic facet and uncovertebral joint arthropathy. At C2-C3, changes result in mild left neuroforaminal stenosis. At C3-C4, changes within moderate left and [id number] right neuroforaminal stenosis. At C4-C5, changes result in mild bilateral neural foraminal stenosis. At C5-C6, changes result in severe left and moderate to severe right neuroforaminal stenosis. At C6/C7, changes result in moderate to severe left and moderate right neuroforaminal stenosis. At C7-T1, there is severe left and [id number] right neuroforaminal stenosis. At C7-T1, excessive metal artifacts limits assessment. Visualized upper lungs show no gross abnormality. Calcifications within the bilateral palatine tonsils likely sequela of prior infection. IMPRESSION: 1. EXTENSIVE POSTSURGICAL CHANGES WITH C5-C7 ACDF, LAMINECTOMY CHANGES FROM C3 DOWN THROUGH C7, AND P OSTERIOR FUSION FROM C3-T4 LEVELS. 2. NO EVIDENT COMPLICATION OF THE ORTHOPEDIC HARDWARE. MILD SUPERIOR ENDPLATE DEFORMITY OF T3 IS UNCH ANGED FROM 05/26/2017. 3. VARIABLE NEUROFORAMINAL STENOSES OUTLINED ABOVE, GREATEST AT C5-C6 AND C6-C7.
== END | disposition home or self-care (01) ==
LOC: RADCTMAIN 09:18
PROVIDERS: ATTEND Neurological Surgery
DX: M99.71 Connective tissue and disc stenosis of intervertebral foramina of cervical region (principal); M43.8X4 Other specified deforming dorsopathies, thoracic region; Z98.1 Arthrodesis status
CPT/HCPCS: 72125

== ENCOUNTER → 2018-03-20 | Outpatient (CLI) | payer MEDICARE, BC ==
--- NOTE | 2018-03-20 10:31 | XR ---
EXAMINATION TYPE: XR knee complete LT DATE OF EXAM: 03/20/2018 COMPARISON: None HISTORY: Pain TECHNIQUE: Three-view left knee FINDINGS: No acute fractures are evident. Joint spaces are preserved. No joint effusion is evident. M inimal vascular calcification is noted. Follow-up exams can be performed 7-10 days from acute trauma for continued pain. IMPRESSION: 1. No acute osseous abnormality left knee.
== END ==
LOC: RADXRMAIN 10:00
PROVIDERS: ATTEND Family Medicine
DX: M25.562 Pain in left knee (principal)

== ENCOUNTER → 2018-05-21 | Outpatient (CLI) | payer MEDICARE, BC ==
--- NOTE | 2018-05-21 13:45 | MR ---
EXAMINATION TYPE: MR knee LT wo con DATE OF EXAM: 05/21/2018 COMPARISON: Left knee x-ray March 20, 2018 HISTORY: Left knee pain/swelling since November 27, 2017 per patient TECHNIQUE: Multiplanar, multisequence images of the knee is performed without IV contrast. FINDINGS: MEDIAL MENISCUS: Anterior horn is intact without tear. Posterior horn shows faint triangular shaped i ncreased signal extends to inferior articular surface sagittal image 23. LATERAL MENISCUS: Anterior and posterior horns are intact without tear. CRUCIATE LIGAMENTS: The anterior and posterior cruciate ligaments are intact and unremarkable. COLLATERAL LIGAMENTS: The medial collateral ligament and lateral collateral ligament complex are inta ct. Mild increased fluid signal surrounds proximal one half of the medial collateral ligament. EXTENSOR MECHANISM: Visualized quadriceps and patellar tendons are intact. EFFUSION: No significant suprapatellar joint effusion. POPLITEAL CYST: No popliteal/patton cyst. TRICOMPARTMENT SPACES: Mild tricompartment joint space loss is present. Mild tricompartment joint spa ce spurring is seen. CARTILAGE: There is some chondromalacia patella with thinning of articular cartilage along posterior inferior patellar pole. Some thinning of articular cartilage medial tibiofemoral compartment is also present. BONE MARROW SIGNAL: No focal abnormal marrow signal is appreciated. OTHER: Some increased signal posterior aspect distal medial femoral condyle with intermediate signal tendon attachment and surrounding fluid is noted. IMPRESSION: 1. Tendinosis/partial tear at origin of the medial head of gastrocnemius muscle. 2. Suspect intrasubstance tear posterior horn of medial meniscus, cannot exclude full-thickness tear. 3. Mild tricompartment degenerative changes as detailed above. 4. Mild proximal MCL sprain injury.
== END | disposition home or self-care (01) ==
LOC: RADMRIMAIN 09:43
PROVIDERS: ATTEND Orthopaedic Surgery
DX: M17.12 Unilateral primary osteoarthritis, left knee (principal); S83.412A Sprain of medial collateral ligament of left knee, initial encounter; S86.912A Strain of unspecified muscle(s) and tendon(s) at lower leg level, left leg, initial encounter

== ENCOUNTER → 2018-07-16 | Outpatient (CLI) | payer MEDICARE, BC ==
--- NOTE | 2018-07-16 15:19 | XR ---
EXAMINATION TYPE: XR thoracic spine 2V DATE OF EXAM: 07/16/2018 CLINICAL HISTORY: pain TECHNIQUE: Frontal, lateral, and swimmer's view of thoracic spine are obtained. COMPARISON: 02/20/2017 FINDINGS: Cervicothoracic arthrodesis remains unchanged. Interconnecting pedicular screws are noted e xtending from C3 through T4. Thoracic spine show satisfactory alignment without evidence of acute fra cture or dislocation. Vertebral body heights are preserved. Moderate to severe degenerative changes noted with spondylosis. Visualized ribs are unremarkable. IMPRESSION: No acute fracture or dislocation is seen in the thoracic spine. ICD 10 NO FRACTURE, INIT IAL EVALUATION
--- NOTE | 2018-07-16 15:36 | XR ---
EXAMINATION TYPE: XR cervical spine comp DATE OF EXAM: 07/16/2018 CLINICAL HISTORY: pain COMPARISON: NONE TECHNIQUE: Frontal, lateral, oblique, swimmers, and open mouth view of the cervical spine are obtaine d. FINDINGS: There is evidence of cervicothoracic thoracic arthrodesis. Interconnecting pedicular screws are noted to extend from C2-3 through T4. There is evidence of ACDF at C5-C7 with anterior fixation plate noted. Solid fusion identified. Alignment is near-anatomic. No fracture or subluxation. Degener ative disc space narrowing identified. IMPRESSION: No acute fracture or dislocation is seen in the cervical spine.ICD 10 NO FRACTURE, INITI AL EVALUATION
== END | disposition home or self-care (01) ==
LOC: RADXRMAIN 14:40
PROVIDERS: ATTEND Neurological Surgery
DX: Z47.89 Encounter for other orthopedic aftercare (principal); Z98.1 Arthrodesis status
CPT/HCPCS: 72050; 72070

== ENCOUNTER → 2019-01-01 | Outpatient (CLI) | payer MEDICARE, BC ==
[2019-01-01 16:53] LABS: Chol/HDL Ratio 2.54; LDL Cholesterol,Calculated 60.6 mg/dL (0.0-131.0); VLDL Calculation 16.4 mg/dL (5.00-40.00)
== END | disposition home or self-care (01) ==
LOC: LABWHC1 09:33
PROVIDERS: ATTEND Physician Assistant
DX: E78.5 Hyperlipidemia, unspecified (principal)
CPT/HCPCS: 36415; 80061

== ENCOUNTER → 2019-02-28 | Outpatient (CLI) | payer MEDICARE, BC ==
--- NOTE | 2019-02-28 20:28 | CONS ---
CONSULTATION DATE OF SERVICE: 02/28/2019 This patient is a 79-year-old gentleman who has been evaluated in [facility] for obstructive sleep apnea-hypopnea syndrome. HISTORY OF PRESENT ILLNESS/SLEEP-WAKE EVALUATION: The patient was diagnosed with obstructive sleep apnea in 2008 in severe range with apnea-hypopnea index around 59.3, according to notes from another institution. Since that time the patient has been on treatment with CPAP. He received a new CPAP unit about one month ago, and he is able to use his CPAP equipment every night for the whole night without significant problems related to his mask fitting, pressure or humidification. At present his sleep schedule is from about 11 p.m. until around 7:30 a.m. No problems with falling asleep. No TV in bedroom. He usually sleeps on the side position. He wakes up from sleep once with nocturia. Before using the machine, he snored and had episodes of stopped breathing during sleep. At present he does not snore and does not have episodes of stopped breathing, according to the patient. Also he has episodes of kicking at night sometimes, according to the patient's . Recently the patient had several episodes of atrial fibrillation documented by loop recording during sleep. I checked his CPAP unit. Pressure is 7 cm of water. Usage is 28/30 nights for the last month with average usage 7.8 hours per night and 28/30 nights for more than 4 hours. Leak is 16 L/minute, which is borderline. Apnea-hypopnea index for the last month is 4.7. During the day the patient does not usually take any naps. [place] Sleepiness Scale is 9, which is borderline. PAST MEDICAL HISTORY: Past medical history is positive for: 1. Atrial fibrillation. 2. Hypertension. 3. Prostate carcinoma. 4. Diabetes mellitus. PAST SURGICAL HISTORY: 1. Several cardiac ablation procedures for atrial fibrillation. 2. Several cervical surgeries at the level of C3 down to T4. MEDICATIONS: 1. Metformin. 2. Lipitor. 3. Eliquis. 4. Metoprolol. 5. Tamsulosin. 6. Baclofen. 7. Tramadol. SOCIAL HISTORY: Negative for smoking and using alcohol. FAMILY HISTORY: Hypertension, hyperlipidemia, arthritis, sinus headaches, cancer, acid reflux, diabetes. REVIEW OF SYSTEMS: Sometimes awakenings from sleep with nocturia. PHYSICAL EXAMINATION: GENERAL: A pleasant gentleman without distress. VITAL SIGNS: BP 132/72, HR 73, RR 14, height 5 feet 7 inches, weight 191.4, body mass index 29.9, temperature 98.4, oxygen saturation at room air 98%. HEENT: BETSY CHEN. Evaluation of oropharynx showed tongue protrudes midline. Extremely low position of soft palate. Mallampati IV. Slight restriction of nasal breathing. NECK: Supple. No JVD. Thyroid is not palpable. Wide neck; 18 inches in circumference. LUNGS: Clear to percussion and to auscultation. Good air exchange. No wheezing or rhonchi. HEART: S1, S2 regular. No murmurs, gallops or rubs. ABDOMEN: Slightly obese. EXTREMITIES: No clubbing or cyanosis. GALLEY STRIPPER: Awake, alert, and oriented X3. Cranial nerves 2 to 7 intact. There is no fasciculation or atrophy. noted. No focal deficits observed. IMPRESSION: 1. Obstructive sleep apnea-hypopnea syndrome in severe range, diagnosed around 2008; extremely low position of soft palate; wide neck; some restriction of nasal breathing. Patient continues to use CPAP equipment every night. Very minimal abnormalities of respiration according to reading from the machine; in acceptable range by today's criteria. 1. History of atrial fibrillation, status post several cardiac ablation procedures. Episodes of short cardiac arrhythmias during sleep according to loop monitor recently. 2. Hypertension. 3. History of prostate carcinoma. 4. Diabetes mellitus. 5. Status post several surgeries at the levels C3-T4. PLAN: 1. I will slightly increase CPAP pressure to 8 cm of water. 2. Patient will continue to use CPAP equipment every night for the whole night. 3. Watching and losing weight. 4. No driving if feeling any sleepiness. 5. Will maintain all necessary prescriptions for CPAP supplies. 6. Follow-up visit in 4 months. Thank you very much for allowing me to participate in the management of your patient. Sincerely, Lul Quijano MD, PhD, FAASM Diplomat of [place] [employer] [place] [employer] In Room Dining Server of [facility] [place] MMODL / WALTN: [id number] /
== END | disposition home or self-care (01) ==
LOC: SLEEP 13:51
PROVIDERS: ATTEND Internal Medicine
DX: G47.33 Obstructive sleep apnea (adult) (pediatric) (principal); I10 Essential (primary) hypertension; E11.9 Type 2 diabetes mellitus without complications; R35.1 Nocturia; I48.91 Unspecified atrial fibrillation; Z86.79 Personal history of other diseases of the circulatory system; Z85.46 Personal history of malignant neoplasm of prostate; Z98.890 Other specified postprocedural states; Z79.84 Long term (current) use of oral hypoglycemic drugs; Z79.01 Long term (current) use of anticoagulants; Z79.891 Long term (current) use of opiate analgesic
CPT/HCPCS: 99211

== ENCOUNTER → 2019-05-13 | Outpatient (CLI) | payer MEDICARE, BC ==
[2019-05-13 23:06] LABS: African American GFR (CKD) 74.7 (60.0-200.0); Non-African American GFR(CKD) 64.4 (60.0-200.0)
== END | disposition home or self-care (01) ==
LOC: LABWHC1 13:36
PROVIDERS: ATTEND Otolaryngology
DX: R13.10 Dysphagia, unspecified (principal); Z88.0 Allergy status to penicillin; Z91.041 Radiographic dye allergy status
CPT/HCPCS: 36415; 82565; 84520

== ENCOUNTER → 2019-05-15 | Outpatient (CLI) | payer MEDICARE, BC ==
--- NOTE | 2019-05-15 09:40 | CT ---
EXAMINATION TYPE: CT soft tissue neck w con DATE OF EXAM: None COMPARISON: 12/21/2017 HISTORY: Dysphagia CT DLP: 428.1 mGycm CONTRAST: CT scan of the neck is performed with IV Contrast, patient injected with 100 mL of Isovue 300. Contrast enhanced CT of the neck was performed from the skull base through the lung apices. AIRWAY: The supraglottic, glottic, and subglottic portions of the airway appear patent and free of mass. SALIVARY GLANDS: The submandibular and parotid glands are free of mass or inflammatory process. THYROID GLAND: No nodules or masses seen. LYMPH NODES: No adenopathy seen greater than 1cm. LUNG APICES: No nodule or mass is seen. OTHER: Vascular structures are patent. Multilevel degenerative disc disease. Changes of cervical fus ion with anterior fixation plate extending from C5 through C7. Fixation plate appears to impress upon the posterior cervical esophagus and may result in dysphagia. No abscess seen. IMPRESSION: Changes of cervical fusion with anterior fixation plate extending from C5 through C7. Fixation plate appears to impress upon the posterior cervical esophagus and may result in dysphagia.
== END | disposition home or self-care (01) ==
LOC: RADCTMAIN 08:05
PROVIDERS: ATTEND Otolaryngology
DX: R11.10 Vomiting, unspecified (principal); Z98.1 Arthrodesis status; Z88.0 Allergy status to penicillin; Z91.048 Other nonmedicinal substance allergy status
CPT/HCPCS: 70491; Q9967

== ENCOUNTER → 2019-06-18 | Outpatient (CLI) | payer MEDICARE, BC ==
--- NOTE | 2019-06-18 09:18 | CT ---
EXAMINATION TYPE: CT CervThoracic spine wo con DATE OF EXAM: 06/18/2019 COMPARISON: CT soft tissue neck dated 05/15/2019 HISTORY: Arthrodesis status CT DLP: 519.8 mGycm Automated exposure control for dose reduction was used. FINDINGS: There is an anterior cervical fusion device bridging the C5-C7 vertebral bodies with near complete os seous fusion at these levels. No malalignment at these levels. Small posterior disc osteophyte comple xes are seen at C3-C4 and C4-C5. There is very minimal grade 1 anterolisthesis of 1 to 2 mm of C7 on T1. Posterior fusion is seen from C3 through T4. There is mild compression deformity of T3 and T4 wit h vertebral body height loss of approximately 10%. Bridging anterior osteophytes are seen of the visu alized thoracic spine indicative of diffuse idiopathic skeletal hyperostosis. No malalignment of the upper thoracic spine. Fusion devices appear intact without hardware fracture. Nondiagnostic evaluatio n of the spinal cord on CT and given the surrounding metallic spray artifact. At C2-C3 there is uncovertebral hypertrophy and facet arthropathy creating mild left neural foraminal narrowing. Right neural foramen and spinal canal are patent. At C3-C4 there is severe facet arthropathy and uncovertebral hypertrophy creating severe left neural foraminal narrowing and mild right neural foraminal narrowing. No spinal canal stenosis. At C4-C5 there is bilateral facet arthropathy and uncovertebral hypertrophy creating moderate to dax re bilateral neural foraminal narrowing. No spinal canal stenosis. At C5-C6 there is uncovertebral hypertrophy and facet arthropathy creating severe right neural forami nal narrowing and moderate left neural foraminal narrowing. No spinal canal stenosis. At C6-C7 there is moderate bilateral neural foraminal narrowing without spinal canal stenosis as a re sult of uncovertebral hypertrophy and facet arthropathy. Throughout the visualized thoracic spine there is no significant neural foraminal narrowing or spinal canal stenosis. There is an exaggerated lordosis of the cervical spine and diffuse osseous demineralization throughou t. Incidentally the ascending thoracic aorta is of upper limits of normal size measuring 3.9 cm. Coronar y artery calcifications are only partially visualized. Minimal atelectasis dependently in the lungs. IMPRESSION: 1. NO HARDWARE FRACTURE OF THE ARTHRODESIS FROM C3 THROUGH T4 POSTERIORLY OR ANTERIORLY FROM C5-C7. G RADE 1 ANTEROLISTHESIS OF 1 TO 2 MM OF C7 ON T1 IS SURGICALLY FIXATED. 2. THERE IS DIFFUSE OSSEOUS DEMINERALIZATION AND MILD COMPRESSION DEFORMITIES OF T3 AND T4 WITH VERTE BRAL BODY HEIGHT LOSS OF APPROXIMATELY 10% THAT AREN'T NOT DEFINITIVELY SEEN RADIOGRAPHICALLY ON THE PRIOR X-RAY OF 07/16/2018. 3. FINDINGS SUGGESTING DIFFUSE IDIOPATHIC SKELETAL HYPEROSTOSIS OF THE THORACIC SPINE AND SEVERE MULT ILEVEL DEGENERATIVE DISC DISEASE OF THE CERVICAL SPINE DETAILED ABOVE AT EACH LEVEL.
== END | disposition home or self-care (01) ==
LOC: RADCTMAIN 07:56
PROVIDERS: ATTEND Neurological Surgery
DX: Z47.89 Encounter for other orthopedic aftercare (principal); M50.30 Other cervical disc degeneration, unspecified cervical region; M43.12 Spondylolisthesis, cervical region; M43.13 Spondylolisthesis, cervicothoracic region; G95.29 Other cord compression; M81.0 Age-related osteoporosis without current pathological fracture; Z98.1 Arthrodesis status
CPT/HCPCS: 72125; 72128

== ENCOUNTER → 2019-10-10 | Outpatient (CLI) | payer MEDICARE, BC ==
--- NOTE | 2019-10-11 07:42 | SFUN ---
SLEEP CENTER FOLLOW UP NOTE DATE OF SERVICE: 10/10/2019 This is a 79-year-old gentleman who has been followed in Sleep Center for treatment of obstructive sleep apnea-hypopnea syndrome. He continues to use his CPAP equipment every night. No snoring with the machine according to his . [place] Sleepiness Scale is only 1. I checked his CPAP unit. CPAP pressure is 8 cm of water, uses 26/30 nights for more than 4 hours with average usage 7.5 hours per night. Leak is 10 L/minute which is acceptable range. Apnea-hypopnea index only 2.0, which is normal. MEDICATIONS: Metformin, atorvastatin, metoprolol, Skelaxin, tramadol, Tamsulosin, Eliquis. PHYSICAL EXAM: GENERAL: gentleman without distress. VITAL SIGNS: BP 123/75, HR 76, RR 16, height 5 feet 7 inches, weight 191, BMI 29.9, temperature 98.4, oxygen saturation at room air 96%. HEENT: PERRLA, EOMI. Oropharynx extremely low position of soft palate, Mallampati 4. NECK: Supple, no JVD. Thyroid is not palpable. LUNGS: Clear to percussion and to auscultation. Good air exchange. No wheezing or rhonchi. HEART: S1, S2 regular. No murmurs, gallops, or rubs. ABDOMEN: Soft and nontender. Bowel sounds are present. No organomegaly appreciated. EXTREMITIES: No clubbing or cyanosis. OVAL OR CIRCULAR GLASS CUTTER: Awake, alert, and oriented X3. Cranial nerves 2 to 7 intact. There is no fasciculation or atrophy. noted. No focal deficits observed. IMPRESSION: 1. Obstructive sleep apnea-hypopnea syndrome. The patient demonstrated great compliance with treatment benefitting from treatment. 2. History of atrial fibrillation, status post several cardiac ablation procedures. 3. Hypertension. 4. History of prostate cancer. 5. Diabetes mellitus. 6. Status post several surgeries on the level of C3-C4. PLAN: 1. Patient will continue to use CPAP equipment every night for the whole night. 2. Watching and losing weight. 3. Sleep hygiene with regular time in bed for at least 71/2 to 8 hours. 4. No driving if feeling sleepiness. 5. Prescription for all necessary CPAP supplies. 6. Follow-up visit in 6 months or earlier if patient has any problems. Thank you very much for allowing me to participate in the management of your patient. MMODL / IJN: [id number] /
== END | disposition home or self-care (01) ==
LOC: SLEEP 15:30
PROVIDERS: ATTEND Internal Medicine
DX: G47.33 Obstructive sleep apnea (adult) (pediatric) (principal); I10 Essential (primary) hypertension; E11.9 Type 2 diabetes mellitus without complications; Z85.46 Personal history of malignant neoplasm of prostate; Z86.79 Personal history of other diseases of the circulatory system; Z98.890 Other specified postprocedural states; Z99.89 Dependence on other enabling machines and devices; Z79.84 Long term (current) use of oral hypoglycemic drugs; Z79.891 Long term (current) use of opiate analgesic; Z79.01 Long term (current) use of anticoagulants; Z79.899 Other long term (current) drug therapy

== ENCOUNTER → 2019-12-17 | Outpatient (CLI) | payer MEDICARE, BC ==
--- NOTE | 2019-12-17 11:38 | CT ---
EXAMINATION TYPE: CT cervical spine wo con DATE OF EXAM: 12/17/2019 COMPARISON: 06/18/2019 HISTORY: arthrodesis status CT DLP: 639.4 mGycm CONTRAST: None CT of the cervical spine is performed in the axial plane at 2 mm thick sections. Reconstructed image s in the coronal, and sagittal plane are reviewed on the computer. Patient is status post arthrodesis with fixation with pedicle screws and rods through the posterior a spect of the cervical spine. Laminectomies been performed C3 through C6. No spinal canal stenosis is present. There is uncovertebral joint hypertrophy and facet hypertrophy causing severe left foramina l stenosis at C3-4 bilaterally C4-5 bilaterally C5-6 and more mildly C6-7. Some severe foraminal sten osis at C7-T1 may be present on the left. Anterior cervical fusion is present C5-C7. Loss of disc hei ght is through the anterior cervical fusion levels. There is loss of disc height through the upper ce rvical spine is well. Kyphosis is noted at the cervical thoracic junction. IMPRESSIONS: 1. Stable postsurgical changes through the cervical spine.
== END | disposition home or self-care (01) ==
LOC: RADCTMAIN 09:22
PROVIDERS: ATTEND Neurological Surgery
DX: Z09 Encounter for follow-up examination after completed treatment for conditions other than malignant neoplasm (principal); Z98.890 Other specified postprocedural states; Z98.1 Arthrodesis status
CPT/HCPCS: 72125

== ENCOUNTER → 2020-04-16 | Outpatient (CLI) | payer MEDICARE, BC ==
--- NOTE | 2020-04-16 20:34 | SFUN ---
SLEEP CENTER FOLLOW UP NOTE DATE OF SERVICE: 04/16/2020 80-year-old gentleman who has been followed in Sleep Center for treatment of obstructive sleep apnea-hypopnea syndrome. Patient continued to use his CPAP equipment every night. After I adjusted CPAP pressure last time, he feels comfortable. No snoring with the machine. [place] Sleepiness Scale today is zero. I checked his CPAP unit, pressure is 8 cm of water. Usage is 25 out of 30 nights for more than 4 hours with average usage 7.8 hours per night. Leak is 23 L/minute. Apnea- hypopnea index 3.1, which is normal. MEDICATIONS: Tamsulosin 0.4 mg once a day, metformin 500 mg once a day, Atorvastatin 20 mg once a day, Eliquis 5 mg twice a day. Tramadol 50 mg on p.r.n. basis. PHYSICAL EXAM: Patient in no distress. BP 115/72, HR 76, RR 15, height 5 feet and 7 inches, weight 185.6 pounds, temperature 98.5, oxygen saturation at room air 97%. Oropharynx extremely low position of soft palate. Mallampati 4. NECK: Supple, no JVD. Thyroid is not palpable. LUNGS: Clear to percussion and to auscultation. Good air exchange. No wheezing or rhonchi. HEART: S1, S2 regular. No murmurs, gallops, or rubs. ABDOMEN: Soft and nontender. Bowel sounds are present. No organomegaly appreciated. EXTREMITIES: No clubbing or cyanosis. HIGH SCHOOL TEACHER: Awake, alert, and oriented X3. Cranial nerves 2 to 7 intact. There is no fasciculation or atrophy. noted. No focal deficits observed. IMPRESSION: 1. Obstructive sleep apnea-hypopnea syndrome. Patient demonstrated good compliance with treatment, benefitting from treatment. 2. History of atrial fibrillation status post cardiac ablation. 3. History of prostate carcinoma. 4. Diabetes mellitus. 5. Status post several surgeries in the level of C3, C4. PLAN: 1. Prescription for all necessary CPAP supplies, including mask, tubes, filters. 2. Patient will continue to use PAP equipment every night for the whole night. 3. Sleep hygiene with regular time in bed for at least 7-1/2 to 8 hours. 4. Precautions related to driving. No driving if feeling sleepiness. 5. I will maintain all necessary prescription for PAP supplies including mask, tube, filters. 6. Watching weight. 7. No driving if feeling sleepiness. 8. Follow-up visit in 6 months or earlier if patient has any problems. Thank you very much for allowing me to participate in management of your patient. Sincerely, Lul Quijano MD, PhD, FAASM Diplomat of [place] [employer] [place] [employer] Cad Detailer of [facility] [place] MMODL / WALTN: [id number] /
== END | disposition home or self-care (01) ==
LOC: SLEEP 13:55
PROVIDERS: ATTEND Internal Medicine
DX: G47.33 Obstructive sleep apnea (adult) (pediatric) (principal); E11.9 Type 2 diabetes mellitus without complications; Z85.46 Personal history of malignant neoplasm of prostate; Z86.79 Personal history of other diseases of the circulatory system; Z99.89 Dependence on other enabling machines and devices

== ENCOUNTER → 2020-08-25 | Outpatient (CLI) | payer MEDICARE, BC ==
--- NOTE | 2020-08-26 06:45 | CT ---
EXAMINATION TYPE: CT CervThoracic spine wo con DATE OF EXAM: 08/25/2020 COMPARISON: CT cervical spine December 17, 2019. CT thoracic spine June 18, 2019. HISTORY: Neck and mid back pain. Bilateral hand numbness and tingling. CT DLP: 2052.7 mGycm. Automated Exposure Control for Dose Reduction was Utilized. TECHNIQUE: CT scan of the cervical and thoracic spine are obtained without contrast, axial images ar e obtained, sagittal and coronal reformatted images are also reviewed. FINDINGS: [place] osseous structures are demineralized. There is redemonstration of anterior fusion pl ate from C5 through C7 levels. There is redemonstration of long segment posterior interpedicular rods and screws running from C3 through the T4 levels bilaterally. Alignment is stable with exaggerated c ervical curvature. There is fairly moderate multilevel disc space narrowing. Spinal canal grossly pre served. Posterior decompression changes with laminectomy defects and spinous process resection from C 3 through C7 levels noted. Thoracic spine shows large bridging anterior osteophytes from roughly T3-T9 levels. [id number] multilevel disc space narrowing. Vertebral body heights maintained. Spinal canal preserved. Additiona l moderate multilevel lateral osteophytes. Visualized thorax redemonstrates moderate to severe three-vessel coronary artery calcification and/or stents, correlate clinically. IMPRESSION: As above. No significant change from most recent prior studies.
== END | disposition home or self-care (01) ==
LOC: RADCTMAIN 14:11
PROVIDERS: ATTEND Neurological Surgery
DX: M48.03 Spinal stenosis, cervicothoracic region (principal); M12.88 Other specific arthropathies, not elsewhere classified, other specified site
CPT/HCPCS: 72125; 72128

== ENCOUNTER → 2020-10-29 | Outpatient (CLI) | payer MEDICARE, BC ==
--- NOTE | 2020-10-29 21:00 | SFUN ---
SLEEP CENTER FOLLOW UP NOTE DATE OF SERVICE: 10/29/2020 80 -year-old gentleman has been followed in Sleep Center for treatment of obstructive sleep apnea-hypopnea syndrome. The patient continues to use his CPAP equipment every night. No snoring according to his . [employer] sleepiness Scale today is 0 which is perfect. I checked CPAP unit. Pressure is 8 cm of water. Usage is 24/30 nights for more than 4 hours. Average usage 7.6 hours per night. Leak is 11 L per minute which is better than during previous visit. Apnea-hypopnea index on 1.5 inches which is perfect. MEDICATIONS: Flexeril 10 mg 3 times a day in daily, Eliquis 5 mg twice a day, Lipitor twice a day. PHYSICAL EXAM: Patient in no distress. BP 111/78, HR 84, RR 15, height 5 feet 8 inches, weight 180 pounds. Temperature 98.1. Oxygen saturation on room air 97%. Oropharynx extremely low position of soft palate. Mallampati 4. NECK: Supple, no JVD. Thyroid is not palpable. LUNGS: Clear to percussion and to auscultation. Good air exchange. No wheezing or rhonchi. HEART: S1, S2 regular. No murmurs, gallops, or rubs. ABDOMEN: Soft and nontender. Bowel sounds are present. No organomegaly appreciated. EXTREMITIES: No clubbing or cyanosis. DIRECT SUPPORT PROFESSIONAL: Awake, alert, and oriented X3. Cranial nerves 2 to 7 intact. There is no fasciculation or atrophy noted. No focal deficits observed. IMPRESSION: 1. Obstructive sleep apnea-hypopnea syndrome. Patient demonstrated 100% compliance with treatment, benefitting from treatment. Normal respiration on CPAP. 2. History of paroxysmal atrial fibrillation, status post several cardiac ablation procedures. Has Loop monitor at the present time. 3. History of prostate carcinoma. 4. Diabetes mellitus. 5. Status post several surgeries at the level of C3, C4. PLAN: 1. Patient will continue to use PAP equipment every night for the whole night. 2. Sleep hygiene with regular time in bed for at least 7-1/2 to 8 hours. 3. Precautions related to driving. No driving if feeling sleepiness. 4. I will maintain all necessary prescription for PAP supplies including mask, tube, filters. 5. Watching weight. 6. Follow-up visit in 6 months or earlier if patient has any problems. Lul Quijano MD, PhD, FAASM Diplomat of [place] [employer] Sleep Medicine Board of [place] [employer] Construction Ironworker of [facility] [place] MMMARIA L / MIGUEL ÁNGEL: [id number] /
== END ==
LOC: SLEEP 14:02
PROVIDERS: ATTEND Internal Medicine
DX: G47.33 Obstructive sleep apnea (adult) (pediatric) (principal); E11.9 Type 2 diabetes mellitus without complications; I48.0 Paroxysmal atrial fibrillation; Z85.46 Personal history of malignant neoplasm of prostate; Z98.890 Other specified postprocedural states; Z79.01 Long term (current) use of anticoagulants; Z91.041 Radiographic dye allergy status; Z88.0 Allergy status to penicillin

== ENCOUNTER → 2020-11-12 | Outpatient (CLI) | payer MEDICARE, BC ==
[2020-11-12 22:29] LABS: African American GFR (CKD) 94.5 (60.0-200.0); Albumin 4.3 g/dL (3.80-4.90); Albumin/Globulin Ratio 1.79 (1.60-3.17); Anion Gap 11.3 mmol/L (4.00-12.00); BUN/Creat Ratio 15.56 Ratio (12.00-20.00); Calcium 9.7 mg/dL (8.7-10.3); Carbon Dioxide 28.7 mmol/L (21.6-31.8); Chol/HDL Ratio 2.47; Globulin 2.4 g/dL (1.6-3.3); LDL Cholesterol,Calculated 57.2 mg/dL (0.0-131.0); Non-African American GFR(CKD) 81.5 (60.0-200.0); Potassium 4.5 mmol/L (3.5-5.5); Total Bilirubin 0.8 mg/dL (0.2-1.2); Total Protein 6.7 g/dL (6.2-8.2); VLDL Calculation 14.8 mg/dL (5.00-40.00)
== END | disposition home or self-care (01) ==
LOC: LABWHC1 09:50
PROVIDERS: ATTEND Internal Medicine Clinical Cardiac Electrophysiology
DX: I47.1 Supraventricular tachycardia (principal); E78.5 Hyperlipidemia, unspecified
CPT/HCPCS: 36415; 80053; 80061; 84443

== ENCOUNTER → 2020-12-16 | Outpatient (CLI) | payer MEDICARE, BC | END | disposition home or self-care (01) | LOC: LABWHC1 09:11 | PROVIDERS: ATTEND Urology | DX: C61 Malignant neoplasm of prostate (principal) | CPT/HCPCS: 36415; 84153 ==

== ENCOUNTER 2020-12-29 06:55 | Day surgery (SDC) | payer MEDICARE, BC ==
[~2020-12-29 06:55] MED LIST changes: +CLINDAMYCIN 600 MG in SODIUM CHLORIDE 0.9% 250 ML IRRIGATION PRN; +CLINDAMYCIN 900 MG in DEXTROSE 5% IN WATER 50 ML IVPB PRN; +diphenhydrAMINE 50 MG/ML 1 ML VIAL IVP PRN; +methylPREDNISolone SOD SUCCI 125 MG/2 ML VIAL IV PRN
[2020-12-29 07:19] VITALS: RESP 18; TEMP 98.9
[2020-12-29 07:26] LABS: Glucose,Whole Blood 106 mg/dL (75-99)
[2020-12-29 07:38] LABS: Basophils # (A) 0.1 k/uL (0-0.2); Basophils % (A) 1 %; Eosinophils # (A) 0.2 k/uL (0-0.7); Eosinophils % (A) 3 %; HCT 50.3 % (39.0-53.0); HGB 16.4 gm/dL (13.0-17.5); Lymphocytes # (A) 1.4 k/uL (1.0-4.8); Lymphocytes % (A) 23 %; MCH 32.2 pg (25.0-35.0); MCHC 32.6 g/dL (31.0-37.0); MCV 98.6 fL (80.0-100.0); Mean Platelet Volume 7.2; Monocytes # (A) 0.4 k/uL (0-1.0); Monocytes % (A) 6 %; Neutrophils # (A) 3.8 k/uL (1.3-7.7); Neutrophils % (A) 64 %; Platelet Count 264 k/uL (150-450); RDW 13.2 % (11.5-15.5); WBC 5.9 k/uL (3.8-10.6)
[2020-12-29 07:53] LABS: African American GFR (CKD) >90 (>60 ml/min/1.73 sqM); Blood Urea Nitrogen 14 mg/dL (9-20); Calcium 9.4 mg/dL (8.4-10.2); Carbon Dioxide 30 mmol/L (22-30); Glucose 104 mg/dL (74-99); Non-African American GFR(CKD) 82 (>60 ml/min/1.73 sqM); Potassium 3.7 mmol/L (3.5-5.1); Sodium 141 mmol/L (137-145)
[2020-12-29 08:16] LABS: Anion Gap 8 mmol/L; Chloride 103 mmol/L (98-107)
[2020-12-29] MEDS ORDERED: MIDAZOLAM 2 MG/2 ML VIAL ONE (08:43)
[2020-12-29] MEDS ORDERED: fentaNYL (PF) 50 MCG/ML 2 ML AMP ONE (08:43)
[2020-12-29] MEDS ORDERED: IV FLUID CONTINUATION 500 ML IV ONE (08:48)
[2020-12-29] MEDS ORDERED: IOPAMIDOL-370 50ML BTL INJ ONE (09:18)
[2020-12-29] MEDS ORDERED: LIDOCAINE 1% INJ 10MG/ML (20 ML MDV) ONE ×2 (09:25→10:02)
[2020-12-29] MEDS ORDERED: GENTAMICIN 300 MG in SODIUM CHLORIDE 0.9% 100 ML IVPB STA (09:40)
[2020-12-29] MEDS: LIDOCAINE 1% INJ 10MG/ML (20 ML MDV) SQ ONE ×4 (09:41→11:46)
--- NOTE | 2020-12-29 12:00 | P.EPPROC ---
- EP Procedure Note Electrophysiology Procedure Note: This was a long procedure. We attempted His bundle pacing for over 30-45 minutes Excellent His bundle signals with a His bundle current of injury was obtained repeatedly and very easily However in most areas, the thresholds post screw deployment were between 2-3 V at 1 ms Finally we obtained a position excellent his signals, His bundle injury and thresholds just about 1 V at 1 ms However consistently, at every single position that was tested, the lead was unstable with minimal movement of the sheath or sheath withdrawal In fact even when the sheath was close to the tip, slight sheath rotations would elevate the His bundle thresholds Therefore at the end, on account of HIS lead instability despite excellent signals and thresholds, His bundle pacing was abandoned after numerous attempts Dual-chamber pacemaker was atrial and RV lead was implanted
[2020-12-29] MEDS ORDERED: ACETAMINOPHEN TAB 325 MG TAB PO PRN (12:02)
[2020-12-29] MEDS ORDERED: ACETAMINOPHEN IV (For NPO) 1,000 MG in EMPTY BAG 1 BAG IVPB ONE (12:02)
--- NOTE | 2020-12-29 12:05 | P.EPPROC ---
- EP Procedure Note Electrophysiology Procedure Note: Procedure: Loop explant under sedation and local anesthesia. Diagnosis: Loop monitor at [facility] Patient was brought to the EP lab in a fasting state. Written informed consent was obtained prior to the procedure. The subcutaneous device was successfully explanted under local anesthesia. Preoperative antibiotics were administered. The wound was closed in layers and dressed per protocol. Result: Successful loop monitor explantation.
--- NOTE | 2020-12-29 13:03 | P.EPPROC ---
- EP Procedure Note Electrophysiology Procedure Note: Left upper extremity venogram Patent left cephalic and left axillary and subclavian venous systems Plan Proceed with permanent pacemaker implantation
--- NOTE | 2020-12-29 13:03 | XR ---
EXAMINATION TYPE: XR chest 1V portable DATE OF EXAM: 12/29/2020 COMPARISON: Chest x-ray August 18, 2014. Chest CT December 05, 2017. HISTORY: Pacemaker placement. TECHNIQUE: Single AP portable frontal upright view of the chest is obtained. FINDINGS: There is mild chronic parenchymal changes without suspicious new focal air space opacity, pleural effusion, or pneumothorax seen. The cardiac silhouette size is mildly enlarged. New dual-lurdes d pacemaker with leads projecting over right atrium and right ventricle. Extensive surgical change to the cervical thoracic spine is partially imaged. Degenerative changes throughout the thoracic spine and bilateral shoulders noted. IMPRESSION: As above.
--- NOTE | 2020-12-29 13:06 | PCN ---
PROCEDURE NOTE Mr. Woods is a 73-year-old male patient with sick sinus syndrome and AV node disease who has had episodes of bradycardia, pauses associated with dizziness. He is brought in for permanent pacemaker implantation. The patient was brought to the EP lab in a fasting state. Written informed consent was obtained prior to the procedure. IV antibiotics were administered. The left pectoral area was prepped and draped as per protocol. Lidocaine 1% was used for local anesthesia. A 4 cm incision was made parallel to the deltopectoral groove, about 1.5 cm medial to it. The incision was carried down to the level of the pectoralis muscle. A subfascial pocket was made. Hemostasis was assured. The left axillary vein was accessed and sheaths were placed in the subclavian vein. First, the RV lead was implanted in the RV apex. This was a Medtronic model #5076, 58 cm in length, and serial number [id number]. This was positioned in the RV apex. R-waves were 6 mV, pacing impedance 1102 ohms, pacing threshold 1 V at 0.4 millisecond. Ten-volt test was negative. Next, His bundle lead was attempted. Despite excellent His bundle signals, His bundle current of injury and good thresholds, the His bundle lead was unstable at every single position that it was implanted. Every time the sheath was withdrawn, the lead would dislodge or there would be a micro dislodgement with a sudden rise in His bundle thresholds. Therefore, after repeated attempts, His bundle pacing was abandoned because of lead instability. Instead, RV pacing was continued. Next, the atrial lead was implanted. This was screwed in the right atrial appendage. P-waves at 2.1 mV, pacing impedance 741 ohms, pacing threshold 0.5 V at 0.4 millisecond. Ten-volt test was negative. This was a Medtronic model #5076, 45 cm in length, and serial number [id number]. The lead was secured to the underlying pectoralis muscle using two nonabsorbable sutures. Pocket was irrigated with antibiotic solution. Leads were connected to the generator (dual-chamber pacemaker 0XT DR MRI, model number [id number], serial number [id number]. The leads and the generator were then placed in the subfascial pocket. The wound was closed in three layers and dressed per protocol. RESULT: Successful dual-chamber pacemaker implantation for management of tachybrady syndrome. PLAN: As long as his episodes of tachycardia are short, brief and asymptomatic, I would avoid using AV ari blocking drugs. His device is being programmed to AAIR-DDDR mode, 50 to 120 bpm. His AV node Wenckebach block occurs at 120 beats per minute in the sedated state. Once he starts having more sustained episodes of atrial tachycardia, an atrial tachycardia ablation will be performed. This was explained to the patient's post procedure. MMODL / IJN: [id number] /
[2020-12-29] MEDS ORDERED: CLINDAMYCIN 900 MG in DEXTROSE 5% IN WATER 50 ML IVPB SCH ×2 (15:30)
[2020-12-29 16:39] VITALS: BP 109/61; PULSE 62
== END 2020-12-29 17:29 | disposition home or self-care (01) ==
LOC: CATHEP 06:55
PROVIDERS: ATTEND Internal Medicine Clinical Cardiac Electrophysiology
DX: I49.5 Sick sinus syndrome (principal); I48.91 Unspecified atrial fibrillation; G47.33 Obstructive sleep apnea (adult) (pediatric); M19.90 Unspecified osteoarthritis, unspecified site; K21.9 Gastro-esophageal reflux disease without esophagitis; Z88.0 Allergy status to penicillin; I10 Essential (primary) hypertension; E78.5 Hyperlipidemia, unspecified; Z79.899 Other long term (current) drug therapy; Z91.041 Radiographic dye allergy status; Z95.0 Presence of cardiac pacemaker; Z85.46 Personal history of malignant neoplasm of prostate
CPT/HCPCS: 33208; 33286; 80048; 85025; 87635; 71045; C1769 ×4; C1892 ×2; C1887; C1898; C1785; J2250; J1580; J2001; J3010; J0131; Q9967

== ENCOUNTER → 2021-04-29 | Outpatient (CLI) | payer MEDICARE, BC ==
--- NOTE | 2021-04-29 15:32 | SFUN ---
SLEEP CENTER FOLLOW UP NOTE DATE OF SERVICE: 04/29/2021 This 81-year-old gentleman has been followed in Sleep Center for treatment of obstructive sleep apnea-hypopnea syndrome. Patient continues to use his CPAP equipment every night, getting his supplies on time. Recently he had a permanent pacemaker insertion in December of 2020. I checked his CPAP unit. Pressure is 8 cm of water. Usage is 29/30 nights and 27/30 nights for more than 4 hours, average 7.5 hours per night. Leak is 14 L/minute. Apnea- hypopnea index is 1.9, which is normal. MEDICATIONS: 1. Tamsulosin 0.4 mg once a day. 2. Atorvastatin 20 mg once a day. 3. Metformin 500 mg once a day. 4. Eliquis 5 mg twice a day. PHYSICAL EXAMINATION: GENERAL: Pleasant patient in no distress. VITAL SIGNS: BP 113/69, HR 71, RR 15, weight 179.2 pounds, height 5 feet 8 inches, temperature 97.0, oxygen saturation at room air 98%. HEENT: PERRLA, EOMI, evaluation of oropharynx showed tongue protrudes midline. Extremely low position of soft palate; Mallampati IV. NECK: Supple, no JVD. Thyroid is not palpable. LUNGS: Clear to percussion and to auscultation. Good air exchange. No wheezing or rhonchi. HEART: S1, S2 regular. No murmurs, gallops, or rubs. ABDOMEN: Soft and nontender. Bowel sounds are present. No organomegaly appreciated. EXTREMITIES: No clubbing or cyanosis. VEHICLE FARE COLLECTOR: Awake, alert, and oriented X3. Cranial nerves 2 to 7 intact. There is no fasciculation or atrophy. noted. No focal deficits observed. IMPRESSION: 1. Obstructive sleep apnea-hypopnea syndrome. Patient demonstrated great compliance with treatment, benefitting from treatment. 2. History of paroxysmal atrial fibrillation, status post several cardiac ablation procedures. 3. Status post permanent pacemaker insertion in December 2020. 4. History of prostate carcinoma. 5. Diabetes mellitus. 6. Status post surgical treatment at the level of C3-C4. PLAN: 1. Patient will continue to use PAP equipment every night for the whole night. 2. Sleep hygiene with regular time in bed for at least 7-1/2 to 8 hours. 3. Precautions related to driving. No driving if feeling sleepiness. 4. I will maintain all necessary prescription for PAP supplies including mask, tube, filters. 5. Watching weight. 6. Follow-up visit in 6 months or earlier if patient has any problems. Thank you very much for allowing me to participate in the management of your patient. Sincerely, Lul Quijano MD, PhD, FAASM Diplomat of [employer] Sleep Medicine Board of [employer] Card Punching Machine Operator of [facility] [place] MMEDITHL / IJN: [id number] /
== END ==
LOC: SLEEP 13:38
PROVIDERS: ATTEND Internal Medicine
DX: G47.33 Obstructive sleep apnea (adult) (pediatric) (principal); I48.0 Paroxysmal atrial fibrillation; E11.9 Type 2 diabetes mellitus without complications; Z95.0 Presence of cardiac pacemaker; Z98.890 Other specified postprocedural states; Z85.46 Personal history of malignant neoplasm of prostate; Z79.01 Long term (current) use of anticoagulants; Z79.84 Long term (current) use of oral hypoglycemic drugs; Z91.041 Radiographic dye allergy status; Z88.0 Allergy status to penicillin

== ENCOUNTER → 2021-07-07 | Outpatient (CLI) | payer MEDICARE, BC | END | disposition home or self-care (01) | LOC: LABWHC1 12:58 | PROVIDERS: ATTEND Urology | DX: C61 Malignant neoplasm of prostate (principal) | CPT/HCPCS: 36415; 84153 ==

== ENCOUNTER → 2021-08-03 | Outpatient (CLI) | payer MEDICARE, BC ==
--- NOTE | 2021-08-03 11:27 | XR ---
EXAMINATION TYPE: XR wrist complete RT DATE OF EXAM: 08/03/2021 CLINICAL HISTORY: Persistent pain after recent fall injury. TECHNIQUE: Frontal, lateral and oblique images of the right wrist are obtained. 4 view scaphoid vie w is performed. COMPARISON: Right forearm x-ray July 21, 2011 FINDINGS: There is tiny acute chip type fracture from the radial aspect of the distal radius seen bes t on frontal and scaphoid views. The carpal joint spaces are preserved. The overlying soft tissue ap pears unremarkable. IMPRESSION: As above.
== END | disposition home or self-care (01) ==
LOC: RADXRMAIN 10:59
PROVIDERS: ATTEND Family Medicine
DX: S52.511A Displaced fracture of right radial styloid process, initial encounter for closed fracture (principal); X58.XXXA Exposure to other specified factors, initial encounter

== ENCOUNTER → 2022-01-14 | Outpatient (CLI) | payer MEDICARE, BC | END | disposition home or self-care (01) | LOC: LABWHC1 12:08 | PROVIDERS: ATTEND Urology | DX: C61 Malignant neoplasm of prostate (principal) | CPT/HCPCS: 36415; 84153 ==

== ENCOUNTER → 2022-04-06 | Outpatient (CLI) | payer MEDICARE, BC ==
--- NOTE | 2022-04-06 15:21 | P.PN ---
Subjective DATE: [] FOLLOW UP VISIT. Patient with obstructive sleep apnea hypopnea syndrome return to sleep center for follow-up visit. Information from previous visit have been reviewed. Patient is using PAP equipment every night for the whole night, getting PAP supplies in time. The patient does not have significant problems with the mask, PAP unit and humidification. Herald sleepiness scale is 5, which is normal. I checked information from PAP unit. PAP unit pressure 8 cm H2O. Usage is 100 % for more then 4 hours, average 7.4 hours per night. Leak is 8 l/m, which is in acceptable range. Apnea Hypopnea Index is 1.5, which is normal. MEDICATIONS:1. Atorvastatin 20 mg once a day 2. Tramadol as needed 3. Metoprolol 25 mg once a day 4. Tamsulosin 0.4 mg once a day 5. Eliquis 5 mg twice a day 6. Aspirin During physical exam: GENERAL: A pleasant patient without any distress. VITAL SIGNS: BP 147/88, HR 78, RR 16 , weight 184.0, temperature 98.5, oxygen saturation at room air 98 % . HEENT: PERRLA, EOMI.low position of soft palate, Mallapati 4 . NECK: Supple. No JVD. LUNGS: Clear to percussion and to auscultation. Good air exchange. No wheezing or rhonchi. HEART: S1, S2 regular. ABDOMEN: Soft and nontender.[] EXTREMITIES: No clubbing or cyanosis. FREIGHT CONDUCTOR: Awake, alert, and oriented x3. No focal deficit. Impressions: 1. Obstructive sleep apnea-hypopnea syndrome. Patient demonstrated great compliance with treatment, benefiting from treatment. 2. History of paroxysmal atrophy of fibrillation, status post several cardiac ablation procedure. 3. Status post permanent pacemaker insertion in December 2020. 4. History of prostate CA. 5. Diabetes mellitus. 6. Status post back surgery at the level CIII-C4. Plan: 1. Continue using PAP equipment every night for the whole night. 2. To change air filter at least 1-2 times per month. 3. PAP unit should stay lower then position of the head. 4. Advised patient to remove all remaining water from humidifier canister daily and make it dry after each usage. Refill canister with fresh distilled water before each usage. 5. Sleep hygiene with regular time in bed for at least 8 hours. 6. Precautions related to driving. No driving if feel any sleepiness. 7. I will maintain prescription for PAP supplies including mask, tube, filters. 8. Follow up visit in 6 months or earlier if patient has any problems. 9. Watching and losing weight. Thank you very much for allowing me to participate in the management of your patient. Lul Quijano MD, PhD, FAASM. Diplomat of [place] [employer], Sleep Medicine Board by [place] [employer] Hand Former Helper of [facility] [place]
== END ==
LOC: SLEEP 13:52
PROVIDERS: ATTEND Internal Medicine
DX: G47.33 Obstructive sleep apnea (adult) (pediatric) (principal); E11.9 Type 2 diabetes mellitus without complications; I97.190 Other postprocedural cardiac functional disturbances following cardiac surgery; Z98.890 Other specified postprocedural states; Z85.46 Personal history of malignant neoplasm of prostate; Z95.0 Presence of cardiac pacemaker; Z91.041 Radiographic dye allergy status; Z88.0 Allergy status to penicillin
CPT/HCPCS: 99212

== ENCOUNTER → 2022-07-14 | Outpatient (CLI) | payer MEDICARE | END | disposition home or self-care (01) | LOC: LABWHC1 13:40 | PROVIDERS: ATTEND Urology | DX: C61 Malignant neoplasm of prostate (principal) | CPT/HCPCS: 36415; 84153 ==

== ENCOUNTER → 2022-11-11 | Outpatient (CLI) | payer MEDICARE ==
--- NOTE | 2022-11-11 12:28 | XR ---
EXAMINATION TYPE: XR cervical spine w flex/ext DATE OF EXAM: 11/11/2022 COMPARISON: 07/16/2018 HISTORY: 82-year-old male with increasing pain after a fall, history of prior cervical fusion TECHNIQUE: 7 views FINDINGS: No predental space widening or prevertebral soft tissue swelling. Similar degenerative change at the C1 dens articulation. Postsurgical change of C3-T4 posterior cervicothoracic fusion and ACDF at C5-C7 levels. There is similar appearance to the orientation of the orthopedic hardware and similar fixed grade 1 a nterolisthesis at C7-T1. Corresponding laminectomies C3-C7 levels. No clear dynamic subluxation on flexion or extension. Detailed assessment at C7-T1 is limited due to overlying shoulders. Normal odontoid view. IMPRESSION: Fairly similar appearance compared to 07/16/2018 with posterior cervicothoracic fusion from C3-T4 level s and ACDF at C5-C7 levels. Fixed grade 1 anterolisthesis C7-T1. No clear dynamic subluxation is seen with flexion extension though detailed assessment at C7-T1 is limited due to overlying shoulders.
== END | disposition home or self-care (01) ==
LOC: RADXRMAIN 09:57
PROVIDERS: ATTEND Psychiatry & Neurology Neurology
DX: M43.23 Fusion of spine, cervicothoracic region (principal); M43.13 Spondylolisthesis, cervicothoracic region; W19.XXXA Unspecified fall, initial encounter
CPT/HCPCS: 72052

== ENCOUNTER → 2023-01-19 | Outpatient (CLI) | payer MEDICARE | END | disposition home or self-care (01) | LOC: LABWHC1 12:05 | PROVIDERS: ATTEND Urology | DX: C61 Malignant neoplasm of prostate (principal) | CPT/HCPCS: 36415; 84153 ==

== ENCOUNTER → 2023-02-13 | Outpatient (CLI) | payer MEDICARE ==
[2023-02-13 10:34] VITALS: BP 156/84; PULSE 80; RESP 15; TEMP 98.2
--- NOTE | 2023-02-13 13:47 | P.PAINPG ---
PQRS Measure Charge Sheet Comment: HISTORY OF PRESENT ILLNESS: A 82 yr old male w at side as a referral from Dr Hearn presents today w severe and chronic neck pain & HAs since fall in Sep 2022 secondary to occipital neuralgia/ cervicogenic NATHAN for evaluation. Pt states pain level is provoked at 10/10 in intensity, constant, localized in the upper cervical spine, R> L, sharp/ throbbing in character w shooting pain towards the scalp. Pain is provoked by lifting. Pain is alleviated by heat, medications (Tramadol, Tyl), PT x 6 wks in Oct- Nov 2022, repositioning and rest. PMH: OA, aFib, DM II, Hyperlipidemia, HTN , HUMA PSH: Cardiac Ablation, C3-T4 Posterior Cervicothoracic Fusion, C5-C7 ACDF, BL Carpal Tunnel Release, BL Cataract Extraction w Implants, L Retinal Repair, R RCT Repair w hardware, LESIs SH: Negative x3 FH: Fa- Colon CA/ from Mining Accident. Mo- DM/ Dementia/ Lived till age 89. All: See list Meds: See list REVIEW OF ORGAN SYSTEMS: CONSTITUTIONAL: No fevers or chills. No recent weight loss. NEUROLOGICAL: + numbness and tingling along the distal extremities. No seizure disorders or headaches. MUSCULOSKELETAL: + pain PSYCHIATRIC: Denies current depression or suicidal thoughts. Physical Examinations : Constitutional : Cooperative , not in acute distress . Neurologic : Cranial nerve II to XII intact. No focal neurological deficits. Psychiatric : alert & oriented x 3. Matching mood & appropriate affect. Judgment & insight intact. Musculoskeletal : Cervical Spine Motor strength in the deltoid and biceps: Normal right side. Normal Left side Motor strength biceps and the wrist extensors: Normal right side . Normal left side Motor strength in the triceps muscle: Normal right side. Normal left side Deep tendon reflexes: Normal at the biceps. Normal at Brachioradialis. Normal at triceps Vertebral body tenderness to deep palpation over Cervical facet loading test: positive bilaterally over BL C2-C3, C3-C4 Spurling test: positive bilaterally Neck distraction test: positive bilaterally Nissa sign: positive bilaterally Lumbar spine Motor strength lower extremities ,thigh and legs 5/5 Right side , 5/5 Left side Deep tendon reflexes : Normal Knee Jerk. Normal Ankle Jerk Vertebral body tenderness over Castaneda Test positive Lumbar facet Loading Test: positive Right / positive Left Range of motion of the lumbar spine Flexion 30 degrees, extension 10 degrees Straight Leg Raise test: Left/ Right positive at degree Magalie test: positive right / positive left. Severe tenderness over the Sacroiliac joint on the Right / Left sides Gaenslen test: positive bilaterally Seated flexion test: positive bilaterally. Sacral spine : Severe tenderness over the Sacroiliac joint: right side / left side Range of motion: Flexion of the lumbar spine <60 degrees Range of motion: Extension of the lumbar spine <20 degrees Gaenslen's Test positive Magalie test: positive right side / left side Thigh Thrust Test Sacral Thrust Test Imaging: X-rays of the cervical spine from 11/11/22 reviewed Assessment/ Plan : Cervicogenic NATHAN, Occipital Neuralgia Recommendation of CT non contrast of the cervical spine for additional imaging M54.2 RTC for a re evaluation. All questions answered. I have spent greater than 30 minutes on patient care today. Dr Toledo was available by phone for the evaluation of this patient. The time was used to review the medical records including relevant urine studies and Prescription history (MAPs), review of the available imaging, evaluation and examination of the patient, coordination of care with the medical staff and if applicable referring physicians, as well as creation of the medical record PQRS Narrative: Smoking Status Never smoker Home Medications: Ambulatory Orders metFORMIN HCL [Glucophage XR] 500 mg PO QAM 08/18/14 Apixaban [Eliquis] 5 mg PO BID #180 tab 09/12/17 Tamsulosin [Flomax] 0.4 mg PO DAILY 11/13/20 Atorvastatin [Lipitor] 40 mg PO QAM 12/25/20 Controlled Substance Measures - Controlled Substance Measures Is patient prescribed a controlled substance at discharge?: No
== END ==
LOC: PNWHC3 09:19
PROVIDERS: ATTEND Specialist
DX: M54.2 Cervicalgia (principal); M19.90 Unspecified osteoarthritis, unspecified site; I48.91 Unspecified atrial fibrillation; E78.5 Hyperlipidemia, unspecified; I10 Essential (primary) hypertension; G47.33 Obstructive sleep apnea (adult) (pediatric); E11.9 Type 2 diabetes mellitus without complications; G44.86 Cervicogenic headache; M54.81 Occipital neuralgia; Z91.041 Radiographic dye allergy status; Z88.0 Allergy status to penicillin; Z79.01 Long term (current) use of anticoagulants; Z79.84 Long term (current) use of oral hypoglycemic drugs
CPT/HCPCS: 99211

== ENCOUNTER → 2023-03-17 | Outpatient (CLI) | payer MEDICARE ==
--- NOTE | 2023-03-17 13:36 | CT ---
EXAMINATION TYPE: CT cervical spine wo con DATE OF EXAM: 03/17/2023 COMPARISON: 12/17/2019 HISTORY: Severe neck pain, DDD. Occipital nerve pain x [address] DLP: 690.6 mGycm Automated exposure control for dose reduction was used. TECHNIQUE: CT scan of the cervical spine is obtained without contrast, axial images are obtained, sa gittal and coronal reformatted images are also reviewed. FINDINGS: The craniovertebral junction relationships and prevertebral soft tissues are normal. There is anterior cervical fusion of C5, C6 and C7. There is wide laminectomy from C2/3 through C7/T1 . There is posterior metallic fusion from C2 through T4. There is partial posterior fusion at the C2-3, C3-4 and C4-5 levels. There is loss of intervertebral disc space at C5-6 and C6-7 and C7/T1 as well as throughout the visua lized upper thoracic spine. There is no significant bony encroachment of the cervical canal. There is multilevel bony neural foraminal encroachment as follows; severe at C3-4 on the left, severe at bilaterally, severe at the C7/T1 and the left,. Technique is limited for cervical disc herniation but no definite large cervical disc herniations are seen. No significant interval change compared to previous. IMPRESSION: 1. No acute changes. 2. Extensive postsurgical changes as described above, stable compared to previous. 3. degenerative changes result in bony neural foraminal stenosis at multiple levels as described abo ve. 4. Overall no interval change compared to previous.
== END | disposition home or self-care (01) ==
LOC: RADCTMAIN 12:50
PROVIDERS: ATTEND Specialist
DX: M50.30 Other cervical disc degeneration, unspecified cervical region (principal); M47.812 Spondylosis without myelopathy or radiculopathy, cervical region; M48.02 Spinal stenosis, cervical region
CPT/HCPCS: 72125

== ENCOUNTER → 2023-03-22 | Outpatient (CLI) | payer MEDICARE ==
--- NOTE | 2023-03-22 15:08 | P.PAINPG ---
PQRS Measure Charge Sheet Comment: HISTORY OF PRESENT ILLNESS: A 82 yr old male w at side presents today w severe and chronic neck pain & HAs since fall in Sep 2022 secondary to occipital neuralgia/ cervicogenic NATHAN for evaluation results of CT cervical spine. Results reviewed. Pt states pain level is provoked at 10/10 in intensity, constant, localized in the upper cervical spine, predominantly axial, R> L, sharp/ throbbing in character w occasional shooting pain towards the scalp. Pain is provoked by lifting. Pain is alleviated by injections in the past, heat, medications, PT x 6 wks in Oct- Nov 2022, repositioning and rest. Cervical disability score of 32. Interventional procedures include C5-C7 Fusion, C2- T1 wide laminectomy Medications include Tramadol, Tyl REVIEW OF ORGAN SYSTEMS: CONSTITUTIONAL: No fevers or chills. No recent weight loss. NEUROLOGICAL: + numbness and tingling along the distal extremities. No seizure disorders or headaches. MUSCULOSKELETAL: + pain PSYCHIATRIC: Denies current depression or suicidal thoughts. Physical Examinations : Constitutional : Cooperative , not in acute distress . Neurologic : Cranial nerve II to XII intact. No focal neurological deficits. Psychiatric : alert & oriented x 3. Matching mood & appropriate affect. Judgment & insight intact. Musculoskeletal : Cervical Spine +BL MCKENNA TTP Motor strength in the deltoid and biceps: Normal right side. Normal Left side Motor strength biceps and the wrist extensors: Normal right side . Normal left side Motor strength in the triceps muscle: Normal right side. Normal left side Deep tendon reflexes: Normal at the biceps. Normal at Brachioradialis. Normal at triceps Vertebral body tenderness to deep palpation over Cervical facet loading test: positive bilaterally Spurling test: positive bilaterally Neck distraction test: positive bilaterally Nissa sign: positive bilaterally Lumbar spine Motor strength lower extremities ,thigh and legs 5/5 Right side , 5/5 Left side Deep tendon reflexes : Normal Knee Jerk. Normal Ankle Jerk Vertebral body tenderness over Castnaeda Test positive Lumbar facet Loading Test: positive Right / positive Left Range of motion of the lumbar spine Flexion 30 degrees, extension 10 degrees Straight Leg Raise test: Left/ Right positive at degree Magalie test: positive right / positive left. Severe tenderness over the Sacroiliac joint on the Right / Left sides Gaenslen test: positive bilaterally Seated flexion test: positive bilatera lly. Sacral spine : Severe tenderness over the Sacroiliac joint: right side / left side Range of motion: Flexion of the lumbar spine <60 degrees Range of motion: Extension of the lumbar spine <20 degrees Gaenslen's Test positive Magalie test: positive right side / left side Thigh Thrust Test Sacral Thrust Test Imaging: CT noncontrast of the cervical spine from 03/17/23 reviewed X-rays of the cervical spine from 11/11/22 reviewed Assessment/ Plan : Cervicogenic NATHAN, Occipital Neuralgia, Post laminectomy syndrome Recommendation of BL MCKENNA injections. May need a series of injections for optimal pain relief. Risks, benefits of procedure discussed and pt verbalized understanding. Protocol for discontinuation/ continuation of medications yane procedure discussed. All questions answered. I have spent greater than 30 minutes on patient care today. Dr Toledo was available by phone for the evaluation of this patient. The time was used to review the medical records including relevant urine studies and Prescription history (MAPs), review of the available imaging, evaluation and examination of the patient, coordination of care with the medical staff and if applicable referring physicians, as well as creation of the medical record PQRS Narrative: Smoking Status Never smoker Home Medications: Ambulatory Orders metFORMIN HCL [Glucophage XR] 500 mg PO QAM 08/18/14 Apixaban [Eliquis] 5 mg PO BID #180 tab 09/12/17 Tamsulosin [Flomax] 0.4 mg PO DAILY 11/13/20 Atorvastatin [Lipitor] 40 mg PO QAM 12/25/20 Diclofenac Sodium Gel [Voltaren 1% Gel] 100 gm TOPICAL BID 30 Days #1 each 02/13/23 Controlled Substance Measures - Controlled Substance Measures Is patient prescribed a controlled substance at discharge?: No
[2023-03-22 15:28] VITALS: BP 165/100; PULSE 74; RESP 15; TEMP 98.4
== END ==
LOC: PNWHC3 14:12
PROVIDERS: ATTEND Specialist
DX: M47.816 Spondylosis without myelopathy or radiculopathy, lumbar region (principal); M96.1 Postlaminectomy syndrome, not elsewhere classified; M54.81 Occipital neuralgia; G44.86 Cervicogenic headache; Z88.0 Allergy status to penicillin; Z91.041 Radiographic dye allergy status
CPT/HCPCS: 99211

== ENCOUNTER 2023-04-11 08:11 | Day surgery (SDC) | payer MEDICARE ==
[2023-04-11 08:40] LABS: Glucose,Whole Blood 94 mg/dL (70-110)
[2023-04-11 09:03] VITALS: RESP 16; TEMP 97.9
[2023-04-11] MEDS ORDERED: methylPREDNISolone ACETATE 80 MG/ML 1 ML VIAL ONE (10:07)
[2023-04-11] MEDS ORDERED: ROPIVACAINE 5MG/ML 20ML VIAL ONE (10:07)
[2023-04-11] MEDS ORDERED: LACTATED RINGERS 1,000 ML IV SCH (10:18)
[2023-04-11 10:38] VITALS: BP 139/89; PULSE 66
--- NOTE | 2023-04-11 11:54 | P.PCN ---
Description of Procedure: Preoperative diagnoses= 1- Greater occipital neuralgia. 2-lesser occipital neuralgia Postoperative diagnoses= as above Procedure= Bilateral Greater occipital and lesser occipital nerve block with local anesthetics and steroid. Anesthesia= Local infiltration of 1% lidocaine. Continuous pulse ox, EKG, blood pressure and verbal communication was maintained with the patient in the OR. . Estimated blood loss=minimal. Procedure indication= the patient had a history of severe chronic neck pain ,and headache, diagnosed with occipital neuralgia exam was positive for severe tenderness over the occipital nerve, she will be a good candidate occipital nerve block, patient failed conservative management. Discussed with the patient the procedure, alternative, complications including infection, bleeding, nerve damage, aggravation of pain all of which could be permanent. Patient understands and QUESTIONS were answered. Procedure description= patient was placed in the sitting position or table and the neck area was prepped and draped with a sterile fashion. At the junction of right sternocleidomastoid muscle with trapezius muscle close to RIGHT superior nucheal line was identified, occipital artery was palpated. Just medial to the occipital artery 25-gauge needle attached to a syringe was introduced. Then after negative aspiration for heme and CSF and there was no paresthesia during the injection, 3 ml solution was injected. Lesser occipital nerve block by introducing needle at the junction of the lateral two thirds and medial one third of RIGHT nucheal line. On the right side 3 ml of Robivacaine 0.5% and 20 mg of Depo-Medrol injected total volume 4 mL after negative aspiration, the needle removed. Entire same procedure was repeated for the left Greater and lesser occipital nerve using same quantity of solution. The patient returned to supine position after the back was cleaned and a Band- Aid applied. Disposition= patient tolerated the procedure well. No complication. Discharged home in stable condition.
== END 2023-04-11 10:50 | disposition home or self-care (01) ==
LOC: ORPAIN 08:11
PROVIDERS: ATTEND Pain Medicine Interventional Pain Medicine
DX: M54.81 Occipital neuralgia (principal); M54.2 Cervicalgia; G89.29 Other chronic pain; E11.9 Type 2 diabetes mellitus without complications; Z88.0 Allergy status to penicillin; Z79.01 Long term (current) use of anticoagulants; Z91.041 Radiographic dye allergy status
CPT/HCPCS: 64405

== ENCOUNTER → 2023-05-01 | Outpatient (CLI) | payer MEDICARE ==
--- NOTE | 2023-05-01 15:05 | P.PAINPG ---
PQRS Measure Charge Sheet Comment: HISTORY OF PRESENT ILLNESS: A 83 yr old male w at side presents today w severe and chronic neck pain & HAs since fall in Sep 2022 secondary to occipital neuralgia/ cervicogenic NATHAN for evaluation s/p BL MCKENNA #1. Pt states he experienced 90% pain relief x 3 wks s/p procedure. Pt states pain level is provoked at 8/10 in intensity, constant, localized in the upper cervical spine, predominantly axial, R> L, sharp/ throbbing in character w occasional shooting pain towards the scalp. Pain is provoked by lifting. Pain is alleviated by injections in the past, heat, medications, PT x 6 wks in Oct- Nov 2022, repositioning and rest. Cervical disability score of 30. Interventional procedures include C5-C7 Fusion, C2- T1 wide laminectomy, BL MCKENNA x1 Medications include Tramadol, Tyl REVIEW OF ORGAN SYSTEMS: CONSTITUTIONAL: No fevers or chills. No recent weight loss. NEUROLOGICAL: + numbness and tingling along the distal extremities. No seizure disorders or headaches. MUSCULOSKELETAL: + pain PSYCHIATRIC: Denies current depression or suicidal thoughts. Physical Examinations : Constitutional : Cooperative , not in acute distress . Neurologic : Cranial nerve II to XII intact. No focal neurological deficits. Psychiatric : alert & oriented x 3. Matching mood & appropriate affect. Judgment & insight intact. Musculoskeletal : Cervical Spine Motor strength in the deltoid and biceps: Normal right side. Normal Left side Motor strength biceps and the wrist extensors: Normal right side . Normal left side Motor strength in the triceps muscle: Normal right side. Normal left side Deep tendon reflexes: Normal at the biceps. Normal at Brachioradialis. Normal at triceps Vertebral body tenderness to deep palpation over Taut bands w twitch response over BL C2-T1 Cervical facet loading test: positive bilaterally Spurling test: positive bilaterally Neck distraction test: positive bilaterally Nissa sign: positive bilaterally Lumbar spine Motor strength lower extremities ,thigh and legs 5/5 Right side , 5/5 Left side Deep tendon reflexes : Normal Knee Jerk. Normal Ankle Jerk Vertebral body tenderness over Castaneda Test positive Lumbar facet Loading Test: positive Right / positive Left Range of motion of the lumbar spine Flexion 30 degrees, extension 10 degrees Straight Leg Raise test: Left/ Right positive at degree Magalie test: positive right / positive left. Severe tenderness over the Sacroiliac joint on the Right / Left sides Gaenslen test: positive bilaterally Seated flexion test: positive bilaterally. Sacral spine : Severe tenderness over the Sacroiliac joint: right side / left side Range of motion: Flexion of the lumbar spine <60 degrees Range of motion: Extension of the lumbar spine <20 degrees Gaenslen's Test positive Magalie test: positive right side / left side Thigh Thrust Test Sacral Thrust Test Imaging: CT noncontrast of the cervical spine from 03/17/23 reviewed X-rays of the cervical spine from 11/11/22 reviewed Assessment/ Plan : Cervicogenic NATHAN, Occipital Neuralgia, Post laminectomy syndrome Would benefit from BL TPIs C2-T1 but pt would like to try PT x 6 wks at this time M50.30. May need a series of injections for optimal pain relief. Risks, benefits of procedure discussed and pt verbalized understanding. Protocol for discontinuation/ continuation of medications yane procedure discussed. All questions answered. I have spent greater than 30 minutes on patient care today. Dr Toledo was available by phone for the evaluation of this patient. The time was used to review the medical records including relevant urine studies and Prescription history (MAPs), review of the available imaging, evaluation and examination of the patient, coordination of care with the medical staff and if applicable referring physicians, as well as creation of the medical record PQRS Narrative: Smoking Status Never smoker Hx Alcohol Use (MH) No Home Medications: Ambulatory Orders metFORMIN HCL [Glucophage XR] 500 mg PO QAM 08/18/14 Apixaban [Eliquis] 5 mg PO BID #180 tab 09/12/17 Tamsulosin [Flomax] 0.4 mg PO DAILY 11/13/20 Atorvastatin [Lipitor] 40 mg PO QAM 12/25/20 Controlled Substance Measures - Controlled Substance Measures Is patient prescribed a controlled substance at discharge?: No
[2023-05-01 15:09] VITALS: BP 158/84; PULSE 79; RESP 16
== END ==
LOC: PNWHC3 14:22
PROVIDERS: ATTEND Specialist
DX: M54.81 Occipital neuralgia (principal); G44.86 Cervicogenic headache; M47.812 Spondylosis without myelopathy or radiculopathy, cervical region; M96.1 Postlaminectomy syndrome, not elsewhere classified; Z91.041 Radiographic dye allergy status; Z88.0 Allergy status to penicillin
CPT/HCPCS: 99211

== ENCOUNTER → 2023-05-11 | Outpatient (CLI) | payer MEDICARE ==
--- NOTE | 2023-05-11 17:19 | P.PN ---
Subjective DATE: 05/11/2023 FOLLOW UP VISIT. Patient with obstructive sleep apnea hypopnea syndrome return to sleep center for follow-up visit. Information from previous visit have been reviewed. Patient is using PAP equipment every night for the whole night, getting PAP supplies in time. The patient does not have significant problems with the mask, PAP unit and humidification. [place] sleepiness scale is 0. I checked information from PAP unit. PAP unit pressure 8 cm H2O. Usage is 96 % for more then 4 hours, average 7.2 hours per night. Leak is 7 l/m, which is in acceptable range. Apnea Hypopnea Index is 3.4, which is normal. MEDICATIONS:1. Atorvastatin 40 mg once a day 2. Eliquis 5 mg once a day 3. Lexapro 10 mg once a day 4. Tamsulosin 0.4 mg once a day During physical exam: GENERAL: A pleasant patient without any distress. VITAL SIGNS: BP 136/80, HR 66, RR 16, weight 183.4, temperature 98.1, oxygen saturation at room air 98 % . HEENT: PERRLA, EOMI.low position of soft palate, Mallapati 4 . NECK: Supple. No JVD. LUNGS: Clear to percussion and to auscultation. Good air exchange. No wheezing or rhonchi. HEART: S1, S2 regular. ABDOMEN: Soft and nontender.[] EXTREMITIES: No clubbing or cyanosis. SQL SSRS SSIS DEVELOPER: Awake, alert, and oriented x3. No focal deficit. Impressions: 1. Obstructive sleep apnea-hypopnea syndrome. Patient demonstrated great compliance with treatment, benefiting from treatment. 2. History of paroxysmal atrial fibrillation. 3. Status post permanent pacemaker insertion. 4. History of prostate cancer. 5. Diabetes mellitus. 6. Status post back surgery the level CIII-C4. Plan: 1. Continue using PAP equipment every night for the whole night. 2. To change air filter at least 1-2 times per month. 3. PAP unit should stay lower then position of the head. 4. Advised patient to remove all remaining water from humidifier canister daily and make it dry after each usage. Refill canister with fresh distilled water before each usage. 5. Sleep hygiene with regular time in bed for at least 8 hours. 6. Precautions related to driving. No driving if feel any sleepiness. 7. I will maintain prescription for PAP supplies including mask, tube, filters. 8. Watching weight. 9. Follow up visit in 6 months or earlier if patient has any problems. Thank you very much for allowing me to participate in the management of your patient. Lul Quijano MD, PhD, FAASM. Diplomat of [employer], Sleep Medicine Board by [employer] [place] Supervisor of [facility] [place]
== END ==
LOC: 3 N SLEEP 14:11
PROVIDERS: ATTEND Internal Medicine
DX: G47.33 Obstructive sleep apnea (adult) (pediatric) (principal); I48.0 Paroxysmal atrial fibrillation; E11.9 Type 2 diabetes mellitus without complications; Z85.46 Personal history of malignant neoplasm of prostate; Z95.0 Presence of cardiac pacemaker; Z79.01 Long term (current) use of anticoagulants; Z79.899 Other long term (current) drug therapy; Z99.89 Dependence on other enabling machines and devices; Z88.0 Allergy status to penicillin; Z91.041 Radiographic dye allergy status; Z79.84 Long term (current) use of oral hypoglycemic drugs
CPT/HCPCS: 99212

== ENCOUNTER → 2023-06-02 | Outpatient (CLI) | payer MEDICARE ==
[2023-06-02 18:17] LABS: Basophils # (A) 0.04 X 10*3/uL (0.00-0.10); Basophils % (A) 0.6 %; Eosinophils # (A) 0.08 X 10*3/uL (0.04-0.35); Eosinophils % (A) 1.3 %; HCT 46.8 % (39.6-50.0); HGB 15.2 g/dL (13.0-17.0); Lymphocytes # (A) 1.94 X 10*3/uL (0.90-5.00); Lymphocytes % (A) 31.4 %; MCH 31.8 pg (27.0-32.0); MCHC 32.5 g/dL (32.0-37.0); MCV 97.9 FL (80.0-97.0); Mean Platelet Volume 9.2 FL (9.5-12.2); Monocytes # (A) 0.53 X 10*3/uL (0.20-1.00); Monocytes % (A) 8.6 %; NRBC Per 100 WBC 0 X 10*3/uL (0.00-0.01); Neutrophils # (A) 3.55 X 10*3/uL (1.80-7.70); Neutrophils % (A) 57.5 %; Platelet Count 302 X 10*3/uL (140-440); RBC 4.78 X 10*6/uL (4.40-5.60); RDW 13.6 % (11.5-14.5); WBC 6.18 X 10*3/uL (4.50-10.00)
[2023-06-02 19:01] LABS: ALT 18 U/L (10-49); AST 20 U/L (14-35); Albumin 4.3 g/dL (3.8-4.9); Albumin/Globulin Ratio 1.87 Ratio (1.60-3.17); Alkaline Phosphatase 118 U/L (41-126); BUN/Creat Ratio 12.56 Ratio (12.00-20.00); Blood Urea Nitrogen 11.3 mg/dL (9.0-27.0); Calcium 9.5 mg/dL (8.7-10.3); Carbon Dioxide 32.8 mmol/L (21.6-31.8); Chloride 101 mmol/L (96-109); Globulin 2.3 g/dL (1.6-3.3); Glucose 99 mg/dL (70-110); Sodium 143 mmol/L (135-145); Total Bilirubin 0.3 mg/dL (0.3-1.2); Total Protein 6.6 g/dL (6.2-8.2)
== END | disposition home or self-care (01) ==
LOC: LABWHC1 13:10
PROVIDERS: ATTEND Internal Medicine Clinical Cardiac Electrophysiology
DX: I10 Essential (primary) hypertension (principal); I48.0 Paroxysmal atrial fibrillation
CPT/HCPCS: 36415; 80053; 83735; 84443; 85025

== ENCOUNTER → 2023-07-10 | Outpatient (CLI) | payer MEDICARE | END | disposition home or self-care (01) | LOC: LABWHC1 13:56 | PROVIDERS: ATTEND Urology | DX: C61 Malignant neoplasm of prostate (principal) | CPT/HCPCS: 36415; 84153 ==

== ENCOUNTER → 2023-12-13 | Outpatient (CLI) | payer MEDICARE ==
[2023-12-13 12:00] VITALS: BP 125/72; PULSE 73; RESP 16; TEMP 98.1
--- NOTE | 2023-12-13 12:43 | P.PROGSL ---
Subjective DATE: 12/13/2023 FOLLOW UP VISIT. Patient with obstructive sleep apnea hypopnea syndrome return to sleep center for follow-up visit. Information from previous visit have been reviewed. Patient was not able to use PAP equipment for about 2 months, because of problem with the teeth and pain while putting his mask on. The patient does not have significant problems with PAP unit and humidification. [place] sleepiness scale is 4, which is normal. I checked information from PAP unit. PAP unit pressure 8 cm H2O. Usage is average 7.5 hours per night. Leak is 8 l/m, which is in acceptable range. Apnea Hypopnea Index is 3.8, which is normal. MEDICATIONS have been reviewed, please see below. During physical exam: GENERAL: A pleasant patient without any distress. VITAL SIGNS: Please see below, weight is 172.2 lbs. HEENT: PERRLA, EOMI.low position of soft palate, Mallapati 4 . NECK: Supple. No JVD. LUNGS: Clear to percussion and to auscultation. Good air exchange. No wheezing or rhonchi. HEART: S1, S2 regular. ABDOMEN: Soft and nontender.[] EXTREMITIES: No clubbing or cyanosis. DUST MIXER: Awake, alert, and oriented x3. No focal deficit. Impressions: 1. Obstructive sleep apnea-hypopnea syndrome. Patient had difficulties to use CPAP equipment secondary to his teeth pain. Normal respiration during using CPAP. Patient will restart to use his CPAP equipment next week. 2. History of atrial fibrillation. 3. Status post permanent pacemaker. 4. History of prostate cancer. 5. Pain in right shoulder. 6. Diabetes mellitus. 7. Status post back surgery at the level of C3-C4. 8. Mild overweight, BMI 27.3, patient lost 11 pounds since previous visit. Plan: 1. Continue using PAP equipment every night for the whole night. We gave patient different type of mask which goes under the nose and possibly will not press on his teeth. 2. Sleep hygiene with regular time in bed for at least 7.5-8 hours 3. PAP unit should stay lower then position of the head. 4. Advised patient to remove all remaining water from humidifier canister daily and make it dry after each usage. Refill canister with fresh distilled water before each usage. 5. Watching weight. 6. Precautions related to driving. No driving if feel any sleepiness. 7. I will maintain prescription for PAP supplies including mask, tube, filters. 8. Follow up visit in 6 months or earlier if patient has any problems. Thank you very much for allowing me to participate in the management of your patient. Lul Quijano MD, PhD, FAASM. Diplomat of [employer], Sleep Medicine Board by [employer] [place] Programmer [facility] [place] Objective - Vital Signs Vital Signs: Vital Signs Temp 98.1 F 12/13/23 11:58 Pulse 73 12/13/23 11:58 Resp 16 12/13/23 11:58 BP 125/72 12/13/23 11:58 Pulse Ox 97 12/13/23 11:58 FiO2 Intake & Output 12/12/23 12/13/23 12/13/23 18:59 06:59 18:59 Weight 78.075 kg Home Medications: Home Medications Medication Instructions Recorded Confirmed Type metFORMIN HCL [Glucophage XR] 500 mg PO QAM 08/18/14 12/13/23 History Apixaban [Eliquis] 5 mg PO BID #180 tab 09/12/17 12/13/23 Rx Tamsulosin [Flomax] 0.4 mg PO DAILY 11/13/20 12/13/23 History Atorvastatin [Lipitor] 40 mg PO QAM 12/25/20 12/13/23 History Escitalopram [Lexapro] 10 mg PO DAILY 12/13/23 12/13/23 History
== END ==
LOC: 3 N SLEEP 11:36
PROVIDERS: ATTEND Internal Medicine
CPT/HCPCS: 99212

== ENCOUNTER → 2024-01-22 | Outpatient (CLI) | payer MEDICARE | END | disposition home or self-care (01) | LOC: LABWHC1 10:53 | PROVIDERS: ATTEND Urology | DX: C61 Malignant neoplasm of prostate (principal) | CPT/HCPCS: 36415; 84153 ==

== ENCOUNTER → 2024-02-14 | Outpatient (CLI) | payer MEDICARE ==
--- NOTE | 2024-02-14 12:52 | XR ---
EXAMINATION TYPE: XR shoulder complete RT DATE OF EXAM: 02/14/2024 12:47 PM INDICATION: Patient age:Male; 83 years old; Reason for study: M25.511 Right shoulder pain; COMPARISON: No direct comparisons TECHNIQUE: The right shoulder was examined in AP, internally rotated and scapular Y projections. . FINDINGS: No evidence of acute osseous pathology, joint dislocation, or soft tissue swelling. AC joint arthropa thy with joint space narrowing and superior spurring. Mild right shoulder joint arthropathy with join t space narrowing and spurring. Partial stabilization of 2 cardiac pacemaker leads. Partial visualiza tion of cervicothoracic fusion hardware. The remaining portions of the visualized chest are unremarka ble. IMPRESSION: 1. No acute osseous pathology. 2. 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 [facility], , 02/14/2024 12:50 PM
== END | disposition home or self-care (01) ==
LOC: RADXRMAIN 12:37
PROVIDERS: ATTEND Family Medicine
DX: M19.011 Primary osteoarthritis, right shoulder (principal)

== ENCOUNTER → 2024-07-11 | Outpatient (CLI) | payer MEDICARE | END | disposition home or self-care (01) | LOC: LABWHC1 11:15 | PROVIDERS: ATTEND Urology | DX: C61 Malignant neoplasm of prostate (principal) | CPT/HCPCS: 36415; 84153 ==

== ENCOUNTER → 2024-08-14 | Outpatient (CLI) | payer MEDICARE ==
[2024-08-14 10:38] VITALS: BP 127/79; PULSE 68; RESP 16; TEMP 97.6
--- NOTE | 2024-08-14 12:32 | P.PROGSL ---
Subjective DATE: 08/14/2024 FOLLOW UP VISIT. Patient with obstructive sleep apnea hypopnea syndrome return to sleep center for follow-up visit. Information from previous visit have been reviewed. Patient is using PAP equipment every night for the whole night, getting PAP supplies in time. Patient has some pain in the face secondary to the mask and neck problems. [place] sleepiness scale is 1, which is normal. I checked information from PAP unit. PAP unit pressure 8 cm H2O. Usage is 70% for more then 4 hours, average 7.2 hours per night. Leak is 13 l/m, which is in acceptable range. Apnea Hypopnea Index is 2.1, which is normal. MEDICATIONS have been reviewed, please see below. During physical exam: GENERAL: A pleasant patient without any distress. VITAL SIGNS: Please see below, weight is 172 lbs. HEENT: PERRLA, EOMI.low position of soft palate, Mallapati 4 . NECK: Supple. No JVD. LUNGS: Clear to percussion and to auscultation. Good air exchange. No wheezing or rhonchi. HEART: S1, S2 regular. ABDOMEN: Soft and nontender.[] EXTREMITIES: No clubbing or cyanosis. RACK WASHER: Awake, alert, and oriented x3. No focal deficit. Impressions: 1. Obstructive sleep apnea-hypopnea syndrome. Patient demonstrated good compliance with treatment, benefiting from treatment. 2. History of atrial fibrillation. 3. Status post permanent pacemaker insertion. 4. History of prostate cancer. 5. Diabetes mellitus. 6. Pain in right shoulder. 7. Status post back surgery. Plan: 1. Continue using PAP equipment every night for the whole night. 2. Sleep hygiene with regular time in bed for at least 7.5-8 hours 3. PAP unit should stay lower then position of the head. 4. Advised patient to remove all remaining water from humidifier canister daily and make it dry after each usage. Refill canister with fresh distilled water before each usage. 5. Watching weight. 6. Precautions related to driving. No driving if feel any sleepiness. 7. I will maintain prescription for PAP supplies including mask, tube, filters. 8. Follow up visit in 8 months or earlier if patient has any problems. Thank you very much for allowing me to participate in the management of your patient. Lul Quijano MD, PhD, FAASM. Diplomat of [place] [employer], Sleep Medicine Board by [employer] Charge Loader of [facility] [place] Objective - Vital Signs Vital Signs: Vital Signs Temp 97.6 F 08/14/24 10:37 Pulse 68 08/14/24 10:37 Resp 16 08/14/24 10:37 BP 127/79 08/14/24 10:37 Pulse Ox 98 08/14/24 10:37 FiO2 Intake & Output 08/13/24 08/14/24 08/14/24 18:59 06:59 18:59 Weight 78.018 kg Home Medications: Home Medications Medication Instructions Recorded Confirmed Type metFORMIN HCL [Glucophage XR] 500 mg PO QAM 08/18/14 08/14/24 History Apixaban [Eliquis] 5 mg PO BID #180 tab 09/12/17 08/14/24 Rx Tamsulosin [Flomax] 0.4 mg PO DAILY 11/13/20 08/14/24 History Atorvastatin [Lipitor] 40 mg PO QAM 12/25/20 08/14/24 History Escitalopram [Lexapro] 10 mg PO DAILY 12/13/23 12/13/23 History
== END ==
LOC: 3 N SLEEP 10:27
PROVIDERS: ATTEND Internal Medicine
DX: G47.33 Obstructive sleep apnea (adult) (pediatric) (principal); I48.91 Unspecified atrial fibrillation; E11.9 Type 2 diabetes mellitus without complications; M25.511 Pain in right shoulder; Z88.0 Allergy status to penicillin; Z91.041 Radiographic dye allergy status; Z85.46 Personal history of malignant neoplasm of prostate; Z96.89 Presence of other specified functional implants; Z98.890 Other specified postprocedural states; Z99.89 Dependence on other enabling machines and devices
CPT/HCPCS: 99212